=== PATIENT | female | born 1985 | race Caucasian/White ===

== ENCOUNTER → 2017-07-30 | Outpatient (CLI) | payer BC ==
[~2017-07-30] MED LIST: CEFE2INJ2 IV; ESCI10TA17 PO; FERR1TAB23 PO; IPRASOL4 INH; LVNIS40 SQ; MISC-696; OPTIRAY 320 IV PRN; OXYC5TAB PO; PRENTAB26 PO; VNCE1000 IV
[2017-07-30 15:53] LABS: BASO % 0.2 %; BASO ABS # 0.02 K/uL (0-0.2); COMPLETE YES; EOS % 1.2 %; HEMATOCRIT 34.3 % (37-47); IG% 0.2 %; LYMPH % 21.2 %; LYMPH ABS # 2.53 K/uL (1.2-3.4); MEAN CELL VOLUME 71.2 fL (80-100); MEAN CORPUSCULAR HEMOGLOBIN 22.2 pg (25-34); MEAN CORPUSCULAR HGB CONC 31.2 g/dl (32-36); MONO % 5.8 %; NEUT % 71.4 %; PLATELET COUNT 340 K/uL (130-400); RED BLOOD COUNT 4.82 M/uL (4.2-5.4); WHITE BLOOD COUNT 11.91 K/uL (4.8-10.8)
[2017-07-30 16:28] LABS: ALB/GLOB RATIO 0.9 (0.9-2); ALKALINE PHOSPHATASE 95 U/L (45-117); ALT/SGPT 25 U/L (12-78); AST/SGOT 13 U/L (15-37); BLOOD UREA NITROGEN 14 mg/dl (7-18); BUN/CREATININE RATIO 17.7 (10-20); CALCIUM 8.7 mg/dl (8.5-10.1); CARBON DIOXIDE 31 mmol/L (21-32); CHLORIDE 98 mmol/L (98-107); CREATININE 0.81 mg/dl (0.60-1.20); GLUCOSE 98 mg/dl (70-99); POTASSIUM 3.3 mmol/L (3.5-5.1); SODIUM 134 mmol/L (136-145)
--- NOTE | 2017-07-30 16:53 | DIAGNOSTIC IMAGING REPORT ---
CT ANGIOGRAM OF THE CHEST CLINICAL HISTORY: Dyspnea. COMPARISON STUDY: Chest x-ray dated 08/08/2016. Chest CT dated 08/06/2016. TECHNIQUE: Following the IV administration of 93 cc of Optiray 320, CT angiogram of the chest was performed from the upper abdomen to the thoracic inlet utilizing the pulmonary embolus protocol. Images are reviewed in the axial, sagittal, and coronal planes. 3-D MIPS images are created and assessed. IV contrast was administered without complication. A dose lowering technique was utilized adhering to the principles of ALARA. The Examination is modestly degraded by motion artifact. CT DOSE: 535.88 mGycm FINDINGS: Thyroid: Imaged portions of the thyroid gland are normal in size and attenuation. Thoracic aorta: The thoracic aorta is normal in caliber and demonstrates standard 3-vessel arch anatomy. No dissection is seen. Pulmonary vasculature: The pulmonary trunk is dilated, measuring 3.3 cm in transverse diameter. This suggests pulmonary artery hypertension. There are no filling defects identified in main, lobar, or segmental pulmonary branches to suggest pulmonary embolus. Heart: The heart is enlarged and without pericardial effusion. Lungs and pleural spaces: The lungs and pleural spaces are clear. Mediastinum: There is no mediastinal lymphadenopathy. Indira: Clear. Axillae: There is no axillary lymphadenopathy. Upper abdomen: Cholecystectomy clips are noted. There is a small hiatal hernia. Postoperative change suggests previous gastric bypass surgery. Skeletal structures: No lytic or blastic bony lesions are seen. IMPRESSION: 1. There is no evidence of pulmonary embolus in the main, lobar, or segmental pulmonary arteries. 2. The lungs are clear. 3. Cardiomegaly with evidence of pulmonary artery hypertension. 4. Additional findings as above. Electronically signed by: Kuldeep Mcclellan M.D. 07/30/2017 4:52 PM Dictated Date/Time: 07/30/2017 4:48 PM
== END | disposition home or self-care (01) ==
LOC: C.CTS 15:25
PROVIDERS: ATTEND Internal Medicine Pulmonary Disease
DX: J96.00 Acute respiratory failure, unspecified whether with hypoxia or hypercapnia (principal); R07.89 Other chest pain; R60.0 Localized edema; R06.02 Shortness of breath; I51.7 Cardiomegaly

== ENCOUNTER → 2017-08-20 | Outpatient (CLI) | payer BC ==
[~2017-08-20] MED LIST changes: -OPTIRAY 320 IV PRN
--- NOTE | 2017-08-29 11:44 | PULMONARY FUNCTION TEST ---
Pre-bronchodilator spirometry is well within normal limits. There was no significant response to bronchodilator but this should not preclude a therapeutic trial if clinically warranted. Lung volumes were well within normal limits. Diffusion capacity was mild to moderately reduced. Clinical correlation is needed.
== END | disposition home or self-care (01) ==
LOC: C.RC 09:29
PROVIDERS: ATTEND Physician Assistant
DX: J80 Acute respiratory distress syndrome (principal); R06.02 Shortness of breath

== ENCOUNTER → 2017-09-04 | Outpatient (CLI) | payer BC ==
[~2017-09-04] MED LIST changes: -MISC-696; +MISC-836
[2017-09-04 10:44] LABS: HEMATOCRIT 33.8 % (37-47); HEMOGLOBIN 10.2 g/dL (12.0-16.0); MEAN CELL VOLUME 71.5 fL (80-100); MEAN CORPUSCULAR HEMOGLOBIN 21.6 pg (25-34); MEAN CORPUSCULAR HGB CONC 30.2 g/dl (32-36); MEAN PLATELET VOLUME 10.1 fL (7.4-10.4); PLATELET COUNT 342 K/uL (130-400); RED CELL DISTRIBUTION WIDTH CV 16.6 % (11.5-14.5); RED CELL DISTRIBUTION WIDTH SD 43.4 fL (36.4-46.3); WHITE BLOOD COUNT 7.55 K/uL (4.8-10.8)
[2017-09-04 10:53] LABS: PTT PATIENT 26.5 SECONDS (21.0-31.0)
[2017-09-04 10:55] LABS: BLOOD UREA NITROGEN 13 mg/dl (7-18); CALCIUM 8.6 mg/dl (8.5-10.1); CARBON DIOXIDE 32 mmol/L (21-32); CREATININE 0.67 mg/dl (0.60-1.20); GLUCOSE 94 mg/dl (70-99); POTASSIUM 3.3 mmol/L (3.5-5.1); SODIUM 136 mmol/L (136-145)
== END | disposition home or self-care (01) ==
LOC: C.LAB1850 09:12
PROVIDERS: ATTEND Internal Medicine Interventional Cardiology
DX: Z01.818 Encounter for other preprocedural examination (principal)

== ENCOUNTER → 2017-09-08 | Day surgery (SDC) | payer BC ==
[~2017-09-08] VITALS: Ht 160 cm; Wt 128.0 kg
[~2017-09-08] MED LIST changes: +ACET-1175 PO; +BUME1TAB PO; +CALC600T9 PO; +ESCI1TAB10 PO; +FENTANYL CITRATE INJ 50 MCG/1 ML 2 ML VIAL ONE; +LAMO25TA PO; +MEDR10TA PO; +METO2.5T PO; +MIDAZOLAM HCL 1 MG/ML 2ML VIAL ONE; +POTA20TA16 PO; +[UNRECOGNIZED DRUG - CODE] PO
[2017-09-08 07:20] VITALS: BP 91/66; PULSE 88; TEMP 36.8; O2SAT 97; Ht 160 cm; Wt 128.0 kg
--- NOTE | 2017-09-08 08:55 | History & Physical Bridge Note ---
H&P Re-Evaluation Bridge Note: I have examined the patient, reviewed the History & Physical and in the interval since the performance of the History & Physical I have noted the following changes of clinical significance: No changes noted
--- NOTE | 2017-09-08 08:56 | Pre Sedation Assessment ---
Pre Sedation Assessment General Date of Sedation: Sep 08, 2017. Vital Signs Past 12 Hours Date Time Temp Pulse Resp B/P (MAP) Pulse Ox O2 Delivery O2 Flow Rate FiO2 09/08/17 07:20 36.8 88 16 91/66 (74) 97 Review Cardiovascular: regular rate, rhythm, no edema Lungs: chest non-tender, lungs clear Pre-Sedation Airway Assessment Smoking Status: Never Smoker Hx of Sleep Apnea: No Short Thick Neck: Yes Thyro-mental Distance: > 3 Finger Breadths Oral Cavity: WNL Mallampati Classification: Class III ASA Classification: Class III NPO Status Date of Last Intake of Fluids: Sep 07, 2017 Time of Last Intake of Fluids: 2229 Date of Last Intake of Solids: Sep 07, 2017 Time of Last Intake of Solids: 2229 Procedure Planning Contraindications for Sedation: None Current Medications Reviewed: Yes Notes The planned sedation has been discussed with the patient. Informed Consent was obtained. I have identified the patient, determined the appropriateness of sedation and have assessed the patient immediately prior to the procedure. All medicine(s) and interventions are by my order.
--- NOTE | 2017-09-08 09:30 | Post Sedation Assessment ---
Post Sedation Assessment General Date of Sedation Sep 08, 2017. Vital Signs: Vital Signs Past 12 Hours Date Time Temp Pulse Resp B/P (MAP) Pulse Ox O2 Delivery O2 Flow Rate FiO2 09/08/17 07:20 36.8 88 16 91/66 (74) 97 Post Procedure Recovery Score Activity: (2) Moves 4 extremities * Respiration: (2) Deep breath/cough Circulation: (2) +/-20% PreAnes Value Consciousness: (2) Fully Awake Oxygen Saturation: (2) > 92% On Room Air Discharge Sedation Level of Care: Fast Track Phase II Post Sedation Plan On clinical assessment, the patient appears to have tolerated the sedation without complications. Patient is recovering as anticipated. Patient will continue to be monitored by nursing and may be discharged when sedation discharge criteria are met per below protocol. Upon Completions of procedure and additional 15 minutes continue every 5 minute vital signs and the P.A.R. score; then discharge to a Phase I or Fast Track to Phase II per the following guidelines: * Discharge Patient to appropriate Phase II area if PAR is 8 or greater or return to pre- procedure baseline. The post - procedure orders will be as directed. * If PAR score is less than 8 or not return to pre-procedure baseline then patient will follow Phase I monitoring till PAR is reached for Phase II. The Phase I may be done in procedure room or may call to secure a Phase I area. * If naloxone or flumazenil are used for reversal, hold in Phase I for an additional 60 -120 minutes before discharge to Phase II. Please call the Sedation Physician to re-evaluate and complete post-note for discharge to Phase II area. Do NOT discharge from procedure sedation or Phase 1 until post- sedation evaluation note is complete by procedure /sedation MD Sedation Discharge Instructions to be given to the patient at discharge to home.
--- NOTE | 2017-09-08 09:46 | Cardiac Catheterization ---
Procedure Note Procedure Date Sep 08, 2017. Pre-Procedure Diagnosis Cardiothoracic Symptom AUC Score 7 Post-Procedure Diagnosis Normal Intracardiac Pressures Procedure(s) Performed Right Heart Cath Senior Business Development Manager [address] Security Officer(s) Glunt Estimated Blood Loss 5 Medication(s) Lidocaine 1% Summary of Findings Sterile IV placed in labor custodian holding area to right antecubital vein. Local lidocaine administered IV exchanged for 6Fr slender sheath 6Fr swan navigated to heart under fluoroscopic guidance. -- RHC Findings -- RA 5 RV 26/8 PA 23/12 (17) PCW 7 PaSat 68% AoSat 100% Kyle CO/CI 6.3/2.8 Thermo CO/CI 8.9/4.0 SUMMARY: 1. Normal biventricular filling pressures. 2. No pulmonary hypertension. 3. Normal cardiac output. Hemodynamics Rest Ao: -- Final Ao: -- LV: -- Recommendations Medical therapy and/or Counseling Specimens None Radiation Exposure (mGy) 68 Contrast (mls) None Fluids (cc crystalloids) 4 Drains none Anesthesia Local Procedural Complication(s) None Disposition Application Integrator Holding/Recovery ACC Data Cardiac Status Clinical evaluation leading to the procedure CAD Presntation: Sx unlikely to be ischemic Anginal Classification: CCS II Cardiogenic Shock w/in 24Hrs: No Cardiac Arrest w/in 24Hrs: No Imaging studies past 6 months: Yes Stress studies past 6 months: No Closure Device Percutaneous Entry Location: antecubital vein Closure Device: none - manual hold Intraprocedure Events Significant Dissection: No Perforation: No
--- NOTE | 2017-09-08 09:55 | Discharge Instructions ---
Discharge Instructions Procedure Procedure Date: Sep 08, 2017. Reason for Visit: Chest Discomfort *. Discharge Discharge Date: Sep 08, 2017. Discharge Diagnosis: Normal pulmonary artery pressures Last Recorded Wt (Kilograms): 128 Instructions Activity Recommendations: resume regular activity Recommended Home Diet: resume previous diet Allergies: Coded Allergies: No Known Allergies (Unverified , 08/01/16) Follow Up Additional Instructions: ACTIVITY RECOMMENDATIONS: Excess manipulation of the arm should be avoided for the next 24-48 hours. * No lifting over 2 pounds (approximately a 1/2 gallon of milk) with the utilized arm for 24 hours. * No strenuous activity such as bowling or tennis for 3 days. * Keep the site of the procedure covered with a bandage for 24 hours. *You may shower the day after the procedure. Do not take a tub bath or submerge the puncture site in water for the next 3 days. SPECIAL CARE INSTRUCTIONS: The site may be slightly bruised and sore following your procedure. Should any of the following occur, contact the Dr. who performed your procedure. 1. Redness/inflammation, swelling, chills, or fever, or colored drainage at procedure site within 3-7 days after your procedure. SKIN IRRITATION: * You may experience some redness and/or swelling in the area where radiation was administered. If any skin irritation occurs, please contact your family physician. FOLLOW UP VISIT: Keep any scheduled doctor appointments. Follow-up with: As scheduled with Dr. Helio Hayden Recommendations: Call your doctor if: * Temperature above 101 degrees * Pain not relieved by pain medicine ordered * There is increased drainage or redness from any incision * You have any unanswered questions or concerns. Your Doctors Instructions noted above were prepared by provider Richie Viveros. Patient Signature Section: Patient Instructions Signature Page Maude Susy Patient (or Guardian) Signature/Date: I have read and understand the instructions given to me by my caregivers. Caregiver/RN/Doctor Signature/Date: The above-named patient and/or guardian has received patient instructions on this date. + Original Patient Signature Page (only) stays with chart. Please make copy for patient.
[2017-09-08 09:59] VITALS: BP 122/70; PULSE 73; O2SAT 98
== END | disposition home or self-care (01) ==
LOC: C.CATH 07:12
PROVIDERS: ATTEND Internal Medicine Interventional Cardiology
DX: R07.9 Chest pain, unspecified (principal); I27.20 Pulmonary hypertension, unspecified; I27.82 Chronic pulmonary embolism; F32.9 Major depressive disorder, single episode, unspecified; E66.01 Morbid (severe) obesity due to excess calories; Z98.84 Bariatric surgery status; Z82.49 Family history of ischemic heart disease and other diseases of the circulatory system

== ENCOUNTER → 2017-09-18 | Outpatient (CLI) | payer BC ==
[~2017-09-18] MED LIST changes: -CEFE2INJ2 IV; -ESCI10TA17 PO; -FENTANYL CITRATE INJ 50 MCG/1 ML 2 ML VIAL ONE; -FERR1TAB23 PO; -IPRASOL4 INH; -LVNIS40 SQ; -MIDAZOLAM HCL 1 MG/ML 2ML VIAL ONE; -MISC-836; -OXYC5TAB PO; -PRENTAB26 PO; -VNCE1000 IV
== END | disposition home or self-care (01) ==
LOC: C.RC 17:13
PROVIDERS: ATTEND Internal Medicine Pulmonary Disease
DX: I27.82 Chronic pulmonary embolism (principal)

== ENCOUNTER → 2017-09-22 | Outpatient (CLI) | payer BC ==
--- NOTE | 2017-09-22 07:46 | DIAGNOSTIC IMAGING REPORT ---
CHEST 2 VIEWS ROUTINE CLINICAL HISTORY: Chest discomfort. Chronic pulmonary embolism. COMPARISON STUDY: Chest CT July 30, 2017. FINDINGS: Lung volumes are normal. No pneumothorax or pleural effusion is noted. Pulmonary vascularity is normal. Mild elevation/eventration of the right hemidiaphragm is unchanged. Cardiac size is normal. Mediastinal contours are normal. There is no evidence for pulmonary edema. IMPRESSION: No acute cardiopulmonary findings. Electronically signed by: Fabian Fitzgerald M.D. 09/22/2017 7:45 AM Dictated Date/Time: 09/22/2017 7:43 AM
--- NOTE | 2017-09-22 08:58 | DIAGNOSTIC IMAGING REPORT ---
LUNG IMAGING VQ CLINICAL HISTORY: 32 years-old Female presenting with I27.82 [facility] AT 7:30. PT A. TECHNIQUE: Immediately following the inhalation of 32.6 mCi of technetium 99 M DTPA for the ventilation scan and the intravenous administration of 5.4 mCi of technetium 99 M MAA for the perfusion scan, anterior, oblique, lateral, and posterior views of the chest were obtained. Modified PIOPED II criteria were utilized for assessment. COMPARISON: Chest x-ray performed the same day and CTA chest from 07/30/2017. FINDINGS: Radiotracer noted in the region of the stomach consistent with ingestion. One small mismatched defect is identified on this examination in the posterior segment of the right upper lobe (less than 25% of the segment). No additional defect is convincingly present. Ventilation to both lungs is preserved. Reference: Modified PIOPED II criteria Normal: No perfusion defects. Very low likelihood ratio: Nonsegmental, perfusion defect < chest x-ray lesion, 1-3 small segmental defects, solitary triple matched defect (< or = 1 segment) in mid or upper lung, stripe sign, solitary large pleural effusion, > or = to 2 matched defects with regionally normal chest x-ray. High likelihood ratio: > or = 2 large mismatch segmental defects. Nondiagnostic: All other findings. IMPRESSION: Very low likelihood for pulmonary embolus. Electronically signed by: Ricardo Kumar M.D. 09/22/2017 8:56 AM Dictated Date/Time: 09/22/2017 8:45 AM
== END | disposition home or self-care (01) ==
LOC: C.NUCL 07:20
PROVIDERS: ATTEND Internal Medicine Pulmonary Disease
DX: I27.82 Chronic pulmonary embolism (principal); R07.89 Other chest pain

== ENCOUNTER → 2017-11-15 | Outpatient (CLI) | payer BC ==
--- NOTE | 2017-11-16 05:39 | PAP/PSG TECHNICIAN REPORT ---
[facility] Manager Activities Polysomnogram Report Study name: None Report date: 11/16/2017 Study date: 11/15/2017 Referring Physician: Puma Cadet MD Name: DORA JOSEPH Interpreting Physician: Ernst Angeles D.O. Date of : 1985 Manager Activities: RADHA Trujillo. Sex: Female Age: 32 StudyType: PSG Weight: 278 lbs Height: 32 years, Height 5' 3" Neck Circum:15.5inches BMI: 49.24 Medications: Acetaminophen 325mg, Bumex 1mg, Calcium +D, Lamictal 25mg, Lamictal XR 100mg, Lexapro 20mg, Metolazone 2.5mg, Potassium Chloride 20MEQ/50ml, Provera 10mg Patient History Study started on room air with no ETCO2 monitoring in room #8. 32 yr old female here tonight for a diagnostic psg. She has SOB with exertion. She has EDS. She sleeps in the upright position in a recliner. She does not know if she snores. She has a history of acute respiratory failure, ARDS, chronic pulmonary embolism and morbid obesity. Her ESS=14/24. Her neck circ=15.5inches. Parameters Monitored NPSG: E1-M2, E2-M1, Fp1-M2, Fp2-M1, F3-M2, F4-M2, F4-M1, C3-M2, C4-M2, C4-M1, O1-M2, O2-M2, O2-M1, T3-M2, T4-M1, P3-M2, P4-M1, CHIN1, CHIN2, HR, EKG, Legs, PFLOW, SNOR, FLOW, CFLOW, Tidal Volume, THOR, ABDO, SpO2, PLTH, CPRESS, ETCO2 Wave, ETCO2, pH Sleep Architecture Sleep Stages Time at Lights Off 9:54:37 PM STAGES Time (min.) TST (%) Time at Lights On 5:15:07 AM Wake 62.0 -- Total Recording Time (TRT) 440.50 min. N1 40.5 11 Total Sleep Period (TSP) 420.0 min. N2 258.0 68 Total Sleep Time (TST) 378.5min. N3 51.5 14 Awake Time 62.0 min. REM 28.5 8 Wake after Sleep Onset 41.5 min. Sleep Efficiency (SE) 86 % Sleep Onset Latency (THERON) 20.5 min. Number of Stage 1 Shifts None Awakenings 25 Stage Changes 144 Number of REM periods 7 REM 28.5 8 REM Latency 220.0 min. NREM 350.0 92 Body Position Analysis Supine Right Left Side Prone Vertical Total Sleep Time (min.) 90.8 49.5 249.9 299.37 0.0 0.0 Total Sleep Time (%) 21% 13% 66% 79 0% N/A% Total Sleep Time REM (min.) 18.5 0.0 10.0 None 0.0 0.0 Total Sleep Time NREM (min.) 60.6 49.5 239.9 None 0.0 0.0 Intermittent Wake (min.) 11.7 27.0 23.3 None 0.0 0.0 Total Sleep Period (%) 20% None None None None None Arousals Myoclonus (PLM) * Events Count Index Events Count Index Spontaneous 37 6 Events Awake (PLMW) 42 40.6 Respiratory 3 0.5 Events Asleep w/ Arousal (PLMA) 17 2.7 PLM 17 3 Events Asleep w/o Arousal (PLMS) 53 8.4 Snoring 7 1 Total Asleep 70 11.1 Total 63 10 Total 112 15 Respiratory Analysis * CA OA MA CH H RERA Total Count 0 0 0 0 21 0 21 Index 0.0 0.0 0.0 0 3.3 0 3.3 Mean Duration 0.0 0.0 0.0 0.00 15.5 0.0 15.5 Longest Duration 0.0 0.0 0.0 0.00 0.0 0.0 25.2 Respiratory Event Summary Total Supine ~Supine Right Left Prone REM NREM Apneas Count 0 0 0 0 0 N/A 0 0 Index 0.0 0 0 0.0 0.0 N/A 0 0 Hypopneas (4% Desat) Count 21 16 5 0 5 N/A 13 8 Index 3.3 12.1 1 0.0 1.2 N/A 27.4 1.4 Apneas & All Hypopneas Count 21 16 5 0 5 N/A 13 8 Index 3.3 12 1 0 1 N/A 27.4 1.4 Respiratory Events (Urologic Surgeon+All Hyp+RERA) Count 21 16 5 0 5 N/A 13 8 Index 3.3 12 1 0.0 1.2 N/A 27.4 1.4 Respiratory Related Arousal Count 3 16 1 0 1 N/A 1 2 Index 0.5 2 0 0 0 N/A 2 0 Snoring Analysis Supine Right Left Prone REM NREM Total Snore duration 18.9 min Snores count 899 5 40 N/A 7 937 944 Snore mean duration 1.2 Sec Snores index 682 6 10 N/A 14.7 160.6 149.6 TST with snoring (%) 5.0% Desaturation Event Summary: Minimum %SpO2 Event Count Mean/Min/Max Duration(sec.) Desaturation Index % Time In Bed > 90 32 20.8 / 5.3 / 56.5 4.6 97.0 86 - 90 3 11.4 / 6.5 / 17.5 14.2 2.9 81 - 85 0 N/A 0.0 0.1 76 - 80 0 N/A 0.0 0.0 71 - 75 0 N/A 0.0 0.0 66 - 70 0 N/A 0.0 0.0 61 - 65 0 N/A 0.0 0.0 56 - 60 0 N/A 0.0 0.0 51 - 55 0 N/A 0.0 0.0 < 50 0 N/A 0.0 0.0 Total REM NREM Awake <50% 0.0 min. 0.0 min. 0.0 min. 0.0 min. 51 - 60% 0.0 min. 0.0 min. 0.0 min. 0.0 min. 61 - 70% 0.0 min. 0.0 min. 0.0 min. 0.0 min. 71 - 80% 0.0 min. 0.0 min. 0.0 min. 0.0 min. 81 - 90% 13.1 min. 3.9 min. 8.2 min. 1.0 min. 91 - 100% 421.1 min. 24.6 min. 341.7 min. 54.7 min. Average 93 93 94 93 Minimum SpO2 80 82 84 80 Desaturation Event Index 4.6 37.9 2.4 3.9 # Desat. Events below 89% 16 9 7 N/A Time(%) with Saturation below 89% 0.7 0.4 0.2 0.1 Time(min.) with Saturation below 89% 2.9 1.8 0.8 0.2 Time (mins) REM (mins) NREM (mins) % of TST SpO2 Below 90% 22 13 N9 1.1 SpO2 Below 88% 5 0 0 0 Heart Rate Analysis Min (bpm) Max (bpm) Average (bpm) Awake 37 127 71 NREM 55 83 65 REM 58 81 68 Overall 55 83 66 Supplemental O2 Values Minimum O2 level: None Value Start Time End Time Manager Activities Comments Ms. Joseph slept in the right, left and supine positions with the head of her bed elevated. She usually sleeps in a recliner. No cardiac arrhythmia noted. Some leg movements were noted. No bruxism noted. Snoring was noted and scored as a 2 on a scale of 1 through 5. (0=no snoring, 5=snoring loud enough to be heard through a closed door or down the acevedo way) She awoke to use the restroom 1 time during the night. She stated that she slept about the same as usual. She needed up for work at 5:15am. The final report will be interpreted and signed by a sleep physician. The completed physician report will then be placed in the patient medical record. Therapy (cm H2O) 0 TIB (min.) 440.5 TST (min.) 378.5 Sleep Onset (min.) 20.5 REM Onset From Sleep (min.) 220.0 Sleep Efficiency % 86 Wakefulness (%) 14 Wakefulness (min.) 62.0 NREM 1 (%) 11 NREM 1 (min.) 40.5 NREM 2 (%) 68 NREM 2 (min.) 258.0 NREM 3 (%) 14 NREM 3 (min.) 51.5 REM (%) 8 REM (min.) 28.5 # Arousals 63 Arousal Index 10 # Snore 944 Snore Index 149.6 AHI 3.3 AHI Supine 12 AHI Non-Supine 1 NREM AHI 1.4 REM AHI 27.4 RDI 3.3 # Obstructive Apnea 0 # Central Apnea 0 # Mixed Apnea 0 # Hypopneas 21 RERAs 0 Total Respiratory Events 21 Time Below SpO2 89% (min.) 2.6 Mean NREM SpO2 (%) 94 Mean REM SpO2 (%) 93 Mean Sleep SpO2 (%) 93 Min NREM SpO2 (%) 84 Min REM SpO2 (%) 82 Position Supine (min.) 90.8 Position Non-supine (min.) 299.4 LM Index Sleep 11.1 LM Index NREM 11.5 LM Index REM 6.3 Mean Heart Rate (bpm) 66 Min Heart Rate (bpm) 55
--- NOTE | 2017-11-17 15:10 | POLYSOMNOGRAPH REPORT ---
CLINICAL DATA: The patient is a 32-year-old female with a history of excessive daytime somnolence. Her [place] sleepiness scale score is 14 out of a possible 24. The BMI is 49.24. This was an in-lab overnight polysomnography. SLEEP ARCHITECTURE: The total sleep period was 420 minutes. The total sleep time was 378.5 minutes. Sleep efficiency was mildly reduced to 86%. The sleep latency was 20.5 minutes. Wake after sleep onset was 41.5 minutes. The REM latency was prolonged to 220 minutes. There were 2 REM periods during the night. Sleep consisted of stage N1 of 11%, stage N2 of 68%, stage N3 of 14%, and stage REM 8%. AROUSAL DATA: The patient had a total of 63 arousals including 37 spontaneous arousals, 3 respiratory arousals, 17 PLM arousals, and 7 snoring arousals. The arousal index was 10. PLM DATA: The patient had 70 periodic limb movements of sleep for a PLM index of 11.1. There were 17 arousals associated with limb movements for a PLM arousal index of 2.7. EKG: The underlying cardiac rhythm was normal sinus. The cardiac rates ranged from 55-83 beats per minute. The average heart rate was 66 beats per minute. No arrhythmia noted. RESPIRATORY DATA: The patient had a total of 21 respiratory events, all hypopneas. Hypopneas were scored according to the 4% desaturation rule. The mean duration of the hypopneas was 15.5 seconds. The apnea hypopnea index was 3.3. This would reflect no significant sleep apnea. OXIMETRY DATA: The average saturation was 93%. The minimum saturation was 80%. The desaturations were transient. There was a total of only 2.9 minutes with saturations less than 89%. SOFT HAT BINDER COMMENTS: The patient slept in the right, left, and supine positions with the head of her bed elevated. She usually sleeps in a recliner. No cardiac arrhythmia noted. Some leg movements noted. No bruxism noted. Snoring was noted and scored as a 2 on a scale of 1 through 5. She awakened to use the restroom one time during the night. IMPRESSION: Primary snoring. COMMENTS: The patient had no significant sleep apnea. As noted, her apnea-hypopnea index was only 3.3. She did have some snoring. There was a relatively mild number of leg movements with no significant arousals. Most of the respiratory events she did have occurred during REM sleep when supine. RECOMMENDATIONS: 1. It is advised that the patient be made aware of the appropriate principles of sleep hygiene including having a regular sleep-wake schedule and allowing at least 7.5 hours of sleep time per night. 2. Weight loss is advised in light of the elevation of body mass index at 49.24. 3. It is suggested that the patient avoid sleeping in the supine position. Typically, there is more respiratory events and snoring while supine.
== END | disposition home or self-care (01) ==
LOC: C.NEUR 21:00
PROVIDERS: ATTEND Internal Medicine Pulmonary Disease
DX: G47.30 Sleep apnea, unspecified (principal); R60.0 Localized edema; I50.810 Right heart failure, unspecified; R06.02 Shortness of breath

== ENCOUNTER 2019-10-10 14:06 | Observation (INO) ==
[2019-10-10] MEDS ORDERED: VANCOMYCIN CONSULT ACTIVE PRN (14:44)
[2019-10-10] MEDS ORDERED: VANCOMYCIN HCL 2,750 MG in SODIUM CHLORIDE 0.9% 500 ML IV ONE (14:44)
[2019-10-10] MEDS ORDERED: SODIUM CHLORIDE 0.9% 1000ML 1,000 ML IV ONE (14:44)
[2019-10-10] MEDS ORDERED: KETOROLAC 30 MG/ML VIAL IV STA (14:47)
--- NOTE | 2019-10-10 15:58 | Emergency Department Note ---
History of Present Illness General Chief complaint: Wound Recheck Stated complaint: INFECTION UNDER LT ARM/SIDE, NEEDS RECHECKED History of Present Illness Maximum Pain Intensity: 7 This patient is a pleasant 34-year-old female that returns to the emergency department for recheck of cellulitis in her left axilla. The patient has a history of HS. She was seen in the emergency department 2 days ago and given Dalvance. Prior to the Dalvance, the patient was on oral clindamycin. She has had no improvement. She actually has worsening redness and pain to the area. She feels nauseated. She has not taken her temperature. She has not tried anything else [id number] for her symptoms. The pain is throbbing in nature. Home Medications Home Medications Medication Instructions Recorded Confirmed Type acetaminophen [Tylenol Extra 500 mg PO QID PRN #0 tab 09/08/17 10/12/19 History Strength] bumetanide 1 mg PO DIRECTED PRN 90 Days 09/08/17 10/12/19 History #180 tab calcium carbonate-vitamin D3 1 tab PO DAILY #0 09/08/17 10/12/19 History [Calcium 600 + D(3)] potassium chloride 20 meq PO DIRECTED PRN #0 tab 09/08/17 10/12/19 History Flintstones Gummies 1 tab PO BID 10/08/19 10/12/19 History Vyvanse 40 mg PO QAM 10/08/19 10/12/19 History alprazolam 0.25 mg PO DIRECTED PRN 10/08/19 10/12/19 History bupropion HCl 150 mg PO BID 10/08/19 10/12/19 History buspirone 15 mg PO BID 10/08/19 10/12/19 History ferrous sulfate 325 mg PO BID 10/08/19 10/12/19 History guanfacine 1 mg PO BID 10/08/19 10/12/19 History hydrocodone-acetaminophen 1 tab PO QID PRN 10/08/19 10/12/19 History lamotrigine 200 mg PO BID 10/08/19 10/12/19 History medroxyprogesterone 150 mg IM Q90D 10/08/19 10/12/19 History medroxyprogesterone 150 mg IM Q90D 10/08/19 10/12/19 History pantoprazole 40 mg PO DAILY PRN 10/08/19 10/12/19 History sertraline 150 mg PO DAILY 10/08/19 10/12/19 History temazepam 15 mg PO DIRECTED PRN 10/08/19 10/12/19 History doxycycline hyclate 100 mg capsule 100 mg PO BID 7 Days #14 cap 10/13/19 10/13/19 Rx Allergies Allergy/AdvReac Type Severity Reaction Status Date / Time amoxicillin [From Augmentin] Allergy Severe Possible Verified 10/14/19 08:35 ARDS clavulanic acid Allergy Severe Possible Verified 10/14/19 08:35 [From Augmentin] ARDS Past Med/Surg History Medical History Anemia ARDS (adult respiratory distress syndrome) 2016 four days after of her son, unknown cause but possibly due to preeclampsia Depression Hidradenitis suppurativa of left axilla (Chronic) Morbid obesity Surgical History Gastric bypass status for obesity H/O hernia repair Previous section Social History Preferred Language: Palauan Communication Ability: Effective Production Analyst Required: No Beliefs That Will Affect Care: None Current Living Situation: Other Current Living Situation Comment: lives with her 3 nawaf old son Feels Safe at Home: Yes Smoking Status: Never smoker Second Hand Exposure: No ; Hx Alcohol Use: No Hx Substance Use: No Review of Systems A total of 10 systems reviewed and were otherwise negative Physical Exam Vital Signs Vital Signs - 24 hr 10/10/19 14:21 Temperature 37.1 C Temperature Source Oral Pulse Rate 86 Respiratory Rate 20 Respiratory Effort / Characteristics Non-Labored Spontaneous Respiratory Depth Normal Respiratory Pattern Regular Blood Pressure 163/100 H Blood Pressure Mean 121 Blood Pressure Position Sitting Pulse Oximetry 100 Oxygen Delivery Method Room Air Sepsis Recent Fever Within 48 Hours No Sepsis New/Unexplained Change in Mental Status No Sepsis Action Taken by Nursing No Action Required Constitutional WD/WN, vitals as above Eyes EOM intact bilaterally ENMT external ear and nose normal, oropharynx normal Neck trachea midline Respiratory normal respiratory effort, lungs clear to auscultation Cardiovascular RRR, no murmur, no edema Gastrointestinal (Abdomen) normal bowel sounds, soft, nontender, no hepatosplenomegaly Musculoskeletal no cyanosis or clubbing, extremities motor strength 5/5 Skin Increasing area of erythema to the left axilla that extends into the anterior aspect of the left chest wall. No purulent drainage noted. Neurologic Alert and oriented x3. No focal motor deficits. Psychiatric Acting appropriately Course Course Patient was seen and examined Vital signs including blood pressure were reviewed medications list was verified with patient Labs were obtained, and a saline lock was established case was discussed with pharmacy. She was ordered ABX Case was d/w the hospitalist service. They kindly agreed to to see the pt for possible inpatient management. Administered Medications Discontinued Medications Hydrocodone Bitart/Acetaminophen ([place] 10/325) 1 tab PO QID PRN PRN Reason: ongoing therapy Stop: 10/24/19 20:40 Last Admin: 10/11/19 07:31 Dose: 1 tab Documented by: [id number] Admin: 10/10/19 23:35 Dose: 1 tab Documented by: [id number] Bupivacaine HCl/Epinephrine Bitart (Sensorcaine/Epinephrine 0.5% Mpf 1:200,000) Confirm Administered Dose 20 ml .ROUTE .STK-MED [facility] Stop: 10/10/19 22:51 Last Admin: 10/10/19 23:04 Dose: 6 ml Documented by: [id number] Bupropion HCl (Wellbutrin-Sr) 150 mg PO BID17 [facility] Stop: 11/10/19 08:59 Last Admin: 10/11/19 08:36 Dose: 150 mg Documented by: [id number] Cosigned by: [id number] Admin: 10/11/19 00:48 Dose: 150 mg Documented by: [id number] Buspirone HCl (Buspar) 15 mg PO BID [facility] Stop: 11/09/19 20:59 Last Admin: 10/11/19 08:30 Dose: 15 mg Documented by: [id number] Cosigned by: [id number] Admin: 10/11/19 00:49 Dose: 15 mg Documented by: [id number] Admin: 10/10/19 22:21 Dose: Not Given Documented by: [id number] Ferrous Sulfate (Feosol) 325 mg PO BIDM [facility] Stop: 11/10/19 07:59 Last Admin: 10/11/19 08:28 Dose: 325 mg Documented by: [id number] Cosigned by: [id number] Guanfacine HCl (Guanfacine Hcl) 1 mg PO BID [facility] Stop: 11/09/19 20:59 Last Admin: 10/11/19 08:35 Dose: 1 mg Documented by: [id number] Cosigned by: [id number] Admin: 10/11/19 00:48 Dose: 1 mg Documented by: [id number] Admin: 10/10/19 22:21 Dose: Not Given Documented by: [id number] Sodium Chloride (Nss 1000ml) 1,000 mls @ 999 mls/hr IV .Q1H1M ONE Stop: 10/10/19 15:44 Last Infusion: 10/10/19 17:07 Dose: 0 mls/hr Documented by: [id number] Admin: 10/10/19 16:05 Dose: 999 mls/hr Documented by: [id number] Cosigned by: [id number] Vancomycin HCl 2,750 mg/ (Sodium Chloride) 555 mls @ 200 mls/hr IV NOW ONE Stop: 10/10/19 17:30 Last Infusion: 10/10/19 17:48 Dose: 0 mls/hr Documented by: [id number] Infusion: 10/10/19 16:22 Dose: 0 mls/hr Documented by: [id number] Admin: 10/10/19 15:58 Dose: 200 mls/hr Documented by: [id number] Cosigned by: [id number] Ciprofloxacin (Cipro) 400 mg in 200 mls @ 200 mls/hr IV NOW STA Stop: 10/10/19 19:05 Last Infusion: 10/10/19 19:32 Dose: 0 mls/hr Documented by: [id number] Admin: 10/10/19 18:25 Dose: 200 mls/hr Documented by: [id number] Cefepime HCl 2,000 mg/ Syringe 20 mls @ 5.5 mls/min IV Q12H [facility]; Protocol Stop: 10/17/19 20:59 Last Admin: 10/11/19 08:52 Dose: 5.5 mls/min Documented by: [id number] Cosigned by: [id number] Admin: 10/10/19 22:01 Dose: 5.5 mls/min Documented by: [id number] Clindamycin Phosphate (Cleocin) 600 mg in 54 mls @ 100 mls/hr IV ONCE [facility] Stop: 10/11/19 23:14 Last Infusion: 10/11/19 02:52 Dose: 0 mls/hr Documented by: [id number] Admin: 10/10/19 22:57 Dose: 100 mls/hr Documented by: [id number] Daptomycin 500 mg/ Syringe 10 mls @ 0 mls/min IV Q24H [facility]; Protocol Stop: 10/18/19 09:59 Last Admin: 10/11/19 12:17 Dose: Not Given Documented by: [id number] Ioversol (Optiray 320 100ml) 94 ml IV ONCE PRN PRN Reason: Interaction Checking Stop: 10/14/19 17:22 Last Admin: 10/10/19 17:24 Dose: 94 ml Documented by: [id number] Ketorolac Tromethamine (Toradol) 30 mg IV NOW [facility] Stop: 10/10/19 14:48 Last Admin: 10/10/19 16:09 Dose: 30 mg Documented by: [id number] Cosigned by: [id number] Lactobacillus Acidophilus (Floranex) 4 tab PO QIDM [facility] Stop: 11/10/19 11:59 Last Admin: 10/11/19 12:24 Dose: 4 tab Documented by: [id number] Lamotrigine (Lamictal) 200 mg PO BID [facility] Stop: 11/09/19 20:59 Last Admin: 10/11/19 08:36 Dose: 200 mg Documented by: [id number] Cosigned by: [id number] Admin: 10/11/19 00:49 Dose: 200 mg Documented by: [id number] Admin: 10/10/19 22:22 Dose: Not Given Documented by: [id number] Lidocaine/Epinephrine (Xylocaine/Epinephrine 1%) Confirm Administered Dose 20 ml .ROUTE .STK-MED ONE Stop: 10/10/19 22:51 Last Admin: 10/10/19 23:04 Dose: 6 ml Documented by: [id number] Lorazepam (Ativan) 1 mg SL NOW [facility] Stop: 10/10/19 16:25 Last Admin: 10/10/19 16:34 Dose: 1 mg Documented by: [id number] Miscellaneous (Order Awaiting Action) 1 ea N/A QS [facility] Stop: 11/10/19 00:00 Last Admin: 10/11/19 08:39 Dose: Not Given Documented by: [id number] Admin: 10/11/19 02:55 Dose: Not Given Documented by: [id number] Multivitamins/Minerals (Caltrate Plus) 1 tab PO DAILY [facility] Stop: 11/10/19 08:59 Last Admin: 10/11/19 08:32 Dose: 1 tab Documented by: [id number] Cosigned by: [id number] Mupirocin (Bactroban 2%) Confirm Administered Dose 66 appln .ROUTE .STK-MED ONE Stop: 10/10/19 22:53 Last Admin: 10/10/19 23:04 Dose: 66 appln Documented by: [id number] Sertraline HCl (Zoloft) 150 mg PO DAILY [facility] Stop: 11/10/19 08:59 Last Admin: 10/11/19 08:31 Dose: 150 mg Documented by: [id number] Cosigned by: [id number] Medical Decision Making Medical Records Attestation: I reviewed the patient's medical records. Home Medications Current Medication List: was personally reviewed by me Laboratory Data Attestation: I reviewed the patient's lab results. Result diagrams: 10/11/19 05:53 10/11/19 05:52 Lab Results 10/10/19 10/10/19 10/10/19 Range/Units 16:11 16:11 16:14 WBC 10.60 (4.8-10.8) K/uL RBC 4.06 L (4.2-5.4) M/uL Hgb 8.9 L (12.0-16.0) g/dL Hct 28.9 L (37-47) % MCV 71.2 L (80-100) fL MCH 21.9 L (25-34) pg MCHC 30.8 L (32-36) g/dL RDW Std Deviation 44.0 (36.4-46.3) fL RDW Coeff of Vane 16.9 H (11.5-14.5) % Plt Count 335 (130-400) K/uL MPV 10.2 (7.4-10.4) fL Immature Gran % (Auto) 0.2 % Neut % (Auto) 67.8 % Lymph % (Auto) 22.4 % [place] % (Auto) 8.3 % Eos % (Auto) 1.1 % Baso % (Auto) 0.2 % Immature Gran # (Auto) 0.02 (0.00-0.02) K/uL Neut # (Auto) 7.19 H (1.4-6.5) K/uL Lymph # (Auto) 2.37 (1.2-3.4) K/uL [place] # (Auto) 0.88 H (0.11-0.59) K/uL Eos # (Auto) 0.12 (0-0.5) K/uL Baso # (Auto) 0.02 (0-0.2) K/uL Giant Platelets 1+ Hypochromasia Present Ovalocytes 1+ Sodium 137 (136-145) mmol/L Potassium 3.4 L (3.5-5.1) mmol/L Chloride 104 (98-107) mmol/L Carbon Dioxide 25 (21-32) mmol/L Anion Gap 8.0 (3-11) BUN 7 (7-18) mg/dl Creatinine 0.71 (0.6-1.2) mg/dl Est Cr Clr Drug Dosing 143.8 ml/min Est GFR ( Amer) 127.0 Est GFR (Non-Af Amer) 109.6 BUN/Creatinine Ratio 9.3 L (10-20) Glucose 93 (70-99) mg/dl Lactate 1.7 (0.4-2.0) mmol/L Calcium 9.0 (8.5-10.1) mg/dl Imaging Data Attestation: I personally reviewed and interpreted this imaging study as follows: Radiologist's Impression: CT chest w/ contast There is significant subcutaneous soft tissue infiltration with overlying dermal thickening seen in the left infraaxillary region consistent with reported history of cellulitis. 2. There is subcutaneous fluid/phlegmonous change in this region as above. No organized/drainable fluid collection is seen at this time. 3. The lungs are clear. 4. Hepatomegaly and hepatic steatosis. 5. Additional findings as above. ACT 112: Negative or not required by law. Electronically signed by: Kuldeep Mcclellan M.D. 10/10/2019 5:33 PM Dictated: 10/10/191726 Transcribed: 10/10/191726 Blood Pressure Blood Pressure Findings: Elevated blood pressure Blood Pressure Disposition: further management by hospitalist QUIRINO Narrative Differential diagnosis: Worsening cellulitis, abscess, sepsis, among others This pt is a 34 y/o female that presents to the ED for a wound recheck. Sx are worsening. No drainable abscess noted on imaging. Due to failure of outpatient tx, the pt will be admitted for likely IV ABX therapy. Impression & Plan Cellulitis Discharge Plan Visit Data *Final* Discharge Date/Time: 10/10/19 20:32 Chief Complaint: Wound Recheck Stated Complaint: INFECTION UNDER LT ARM/SIDE, NEEDS RECHECKED ED Provider: Fab Chinchilla ED Midlevel Provider: America Middleton Discharge Problem: Cellulitis Patient Disposition: Admitted As Inpatient Condition: Fair Discharge Instructions Interventions: ED Discharge Assessment Last Done: 10/10/19 20:32
[2019-10-10] MEDS ORDERED: LORazepam 1 MG TAB SL STA (16:24)
[2019-10-10 16:25] LABS: Basophils # (auto) 0.02 K/uL (0-0.2); Basophils % (auto) 0.2 %; Eosinophils # (auto) 0.12 K/uL (0-0.5); Eosinophils % (auto) 1.1 %; Hematocrit (blood only) 28.9 % (37-47); Hemoglobin 8.9 g/dL (12.0-16.0); Immature Granulocytes # (auto) 0.02 K/uL (0.00-0.02); Immature Granulocytes % (auto) 0.2 %; Lymphocytes # (auto) 2.37 K/uL (1.2-3.4); Lymphocytes % (auto) 22.4 %; Mean Corpuscular Hemoglobin 21.9 pg (25-34); Mean Corpuscular Hgb Conc 30.8 g/dL (32-36); Mean Corpuscular Volume 71.2 fL (80-100); Mean Platelet Volume 10.2 fL (7.4-10.4); Monocytes # (auto) 0.88 K/uL (0.11-0.59); Monocytes % (auto) 8.3 %; Neutrophils # (auto) 7.19 K/uL (1.4-6.5); Neutrophils % (auto) 67.8 %; Platelet Count 335 K/uL (130-400); RDW Coefficient of Variation 16.9 % (11.5-14.5); Red Blood Count 4.06 M/uL (4.2-5.4)
[2019-10-10 16:41] LABS: BUN Creatinine Ratio 9.3 (10-20); Creatinine Clr Calc Pharmacy 143.8 ml/min; Est GFR (Non-African American) 109.6; Potassium 3.4 mmol/L (3.5-5.1)
[2019-10-10 16:54] LABS: Giant Platelets 1+; Hypochromasia Present; Ovalocytes 1+
[2019-10-10] MEDS ORDERED: IOVERSOL 100ml IV PRN (17:23)
--- NOTE | 2019-10-10 17:34 | CT Scan Report ---
CT SCAN OF THE CHEST WITH IV CONTRAST CLINICAL HISTORY: Left axillary cellulitis. COMPARISON STUDY: Chest CT scans dated 02/18/2019 and 07/30/2017. TECHNIQUE: Following the IV administration of 94 cc of Optiray 320, CT scan of the thorax was perform ed from the thoracic inlet to the upper abdomen. Images are reviewed in the axial, sagittal, and lizbet nal planes. IV contrast was administered without complication. A dose lowering technique was utilize d adhering to the principles of ALARA. CT DOSE: 920.06 mGy.cm FINDINGS: Soft tissues: There is extensive subcutaneous soft tissue induration with overlying dermal thickening seen in the left infra-axillary soft tissues. This extends along the lateral chest wall posterior to the breast. There is phlegmonous change/subcutaneous fluid in this region, which measures approximat snehal 7.5 x 6 x 5 cm in maximum dimension. No organized/drainable fluid collection is seen at this time . Thyroid: Imaged portions of the thyroid gland are normal in size and attenuation. Thoracic aorta: The thoracic aorta is normal in caliber and demonstrates standard 3-vessel arch anato my. No dissection is seen. Pulmonary vasculature: The pulmonary trunk is normal in caliber. There are no filling defects identif ied in the central pulmonary vessels to indicate pulmonary embolus. Note that this examination was no t protocoled for evaluation of the pulmonary arteries. Heart: The heart is normal in size and without pericardial effusion. Lungs and pleural spaces: The lungs and pleural spaces are clear. The trachea and central airways are patent. Mediastinum: There is no mediastinal lymphadenopathy. Indira: Clear. Axillae: There is no axillary lymphadenopathy. Upper abdomen: The liver is enlarged and steatotic. Cholecystectomy clips are noted. There are change s of Navarro-en-Y gastric bypass surgery. Skeletal structures: No lytic or blastic bony lesions are seen. IMPRESSION: 1. There is significant subcutaneous soft tissue infiltration with overlying dermal thickening seen i n the left infraaxillary region consistent with reported history of cellulitis. 2. There is subcutaneous fluid/phlegmonous change in this region as above. No organized/drainable flu id collection is seen at this time. 3. The lungs are clear. 4. Hepatomegaly and hepatic steatosis. 5. Additional findings as above. ACT 112: Negative or not required by law. Electronically signed by: Kuldeep Mcclellan M.D. 10/10/2019 5:33 PM
[2019-10-10] MEDS ORDERED: CIPROFLOXACIN 400 MG/200 ML BAG IV STA (18:06)
--- NOTE | 2019-10-10 19:54 | History & Physical Report ---
Date of Service October 10, 2019 Assessment & Plan (1) Hidradenitis suppurativa of left axilla: With ongoing cellulitis and now with possible antibioma/abscess formation Received a dose of Dalvance about 3 days ago without any improvement Will start intravenous cefepime to cover Pseudomonas Surgery consult for possible I&D Monitor CBC (2) Cellulitis: As above (3) Depression: History of anxiety and depression We will continue current medications History of gastric bypass and history of abdominal hernia repair with mesh with complications following surgery No acute problem for now DVT prophylaxis SCDs Increase ambulation CODE STATUS Full History of Present Illness Chief Complaint: Worsening left axillary abscess/hidradenitis suppurativa Primary Care Provider: Neeraj Jorge She is a 34 years old obese female with significant past medical history of hidradenitis separativa involving mainly left axilla, anxiety/depression, history of respiratory failure following abdominal procedure has been complaining of increasing swelling with discharge from the left axillary wound for some time. A few weeks back she was seen by her primary care doctor and was given ceftriaxone IM followed by oral clindamycin. She was seen in the ER with increasing symptoms and was given 1 dose of Dalvance about 3 days ago. She is back in the ER for a follow-up and was noted to have increasing swelling and redness involving the left axilla. She was advised for admission and intravenous antibiotic to cover other organisms especially Pseudomonas. No fever and/or chills, no significant drainage from the wound, no nausea no vomiting, and no other symptoms. She was afebrile with normal white count and a CAT scan of the axillary region did not show any abscess. She was admitted to the medical floor and was started with intravenous cefepime and a surgical consultation with taking for possible drainage. Allergies Allergy/AdvReac Type Severity Reaction Status Date / Time amoxicillin [From Augmentin] Allergy Severe Possible Unverified 10/08/19 16:00 ARDS clavulanic acid Allergy Severe Possible Unverified 10/08/19 16:00 [From Augmentin] ARDS Home Medications Home Medications Medication Instructions Recorded Confirmed Type acetaminophen [Tylenol Extra 500 mg PO QID PRN #0 tab 09/08/17 10/08/19 History Strength] bumetanide 1 mg PO DIRECTED PRN 90 Days 09/08/17 10/08/19 History #180 tab calcium carbonate-vitamin D3 1 tab PO DAILY #0 09/08/17 10/08/19 History [Calcium 600 + D(3)] potassium chloride 20 meq PO DIRECTED PRN #0 tab 09/08/17 10/08/19 History alprazolam 0.25 mg PO DIRECTED PRN 10/08/19 10/08/19 History bupropion HCl 150 mg PO BID 10/08/19 10/08/19 History buspirone 15 mg PO BID 10/08/19 10/08/19 History clindamycin HCl 150 mg PO QID 10/08/19 10/08/19 History clindamycin phosphate 1 applic TOPICAL DAILY 10/08/19 10/08/19 History ferrous sulfate 325 mg PO BID 10/08/19 10/08/19 History guanfacine 1 mg PO BID 10/08/19 10/08/19 History hydrocodone-acetaminophen 1 tab PO QID PRN 10/08/19 10/08/19 History lamotrigine 200 mg PO BID 10/08/19 10/08/19 History lisdexamfetamine [Vyvanse] 40 mg PO QAM 10/08/19 10/08/19 History medroxyprogesterone 150 mg IM Q90D 10/08/19 10/08/19 History medroxyprogesterone 150 mg IM Q90D 10/08/19 10/08/19 History pantoprazole 40 mg PO DAILY PRN 10/08/19 10/08/19 History pediatric multivitamin no.49 1 tab PO BID 10/08/19 10/08/19 History [Flintstones Gummies] sertraline 150 mg PO DAILY 10/08/19 10/08/19 History temazepam 15 mg PO DIRECTED PRN 10/08/19 10/08/19 History Past Med/Surg History Medical History Depression Surgical History (Updated 10/10/19 @ 19:43 by Josh Bertrand MD) Gastric bypass status for obesity H/O hernia repair Social History Preferred Language: Kinyarwanda Feels Safe at Home: Yes Smoking Status: Never smoker Review of Systems Review of Systems: All systems reviewed & are unremarkable except as noted in HPI & below Physical Exam Physical Exam: Lying in bed comfortably Constitutional: well developed, well nourished, + acute distress (Very anxious), + ill appearing and + obese Eyes: PERRL, conjunctivae normal, anicteric sclerae ENMT: external ear and nose normal, oropharynx normal Neck: trachea midline, no thyromegaly Respiratory: normal respiratory effort Auscultation: lungs clear to auscultation bilaterally Cardiovascular: Rate/Rhythm: regular rate and regular rhythm Heart Sounds: no murmur Gastrointestinal (Abdomen): Inspection/Auscultation: abdomen normal to inspection and + abdomen distended Percussion/Palpation: abdomen soft; abdomen nontender Musculoskeletal: No acute arthritis Skin: Left axillary area-a lump about the size of a tennis ball with in duration and surrounding edema and redness without fluctuation Neurologic: moves all extremities; no focal motor deficits Lymphatic: no cervical or axillary lymphadenopathy Results & Data Vital Signs (Past 12 Hours) Vital Signs Temp Pulse Pulse Resp BP BP Pulse Ox 10/10/19 16:06 80 18 122/66 97 10/10/19 14:21 37.1 C 86 20 163/100 H 100 Laboratory Results Short CBC 10/10/19 Range/Units 16:11 WBC 10.60 (4.8-10.8) K/uL Hgb 8.9 L (12.0-16.0) g/dL Hct 28.9 L (37-47) % Plt Count 335 (130-400) K/uL BMP 10/10/19 16:11 Sodium 137 Potassium 3.4 L Chloride 104 Carbon Dioxide 25 BUN 7 Creatinine 0.71 Glucose [address]cium 9[address] of the chest-showed significant subcutaneous soft tissue infiltration with overlying dermal thickening in the left infra axillary region consistent with reported history of cellulitis, there is subcutaneous fluid/phlegmonous change in this region no organized/drainable fluid collection, hepatomegaly with hepatic steatosis. Medications Administered Current Inpatient Medications Cefepime HCl 2,000 mg/ Syringe 20 mls @ 5.5 mls/min IV Q12H [facility]; Protocol Stop: 10/17/19 19:29 Ioversol (Optiray 320 100ml) 94 ml IV ONCE PRN PRN Reason: Interaction Checking Stop: 10/14/19 17:22 Last Admin: 10/10/19 17:24 Dose: 94 ml Documented by: Code Status & VTE Plan VTE Prophylaxis Plan VTE Prophylaxis will be ordered: Yes
[2019-10-10] MEDS ORDERED: TEMAZEPAM 15 MG CAPSULE PO PRN (20:41)
[2019-10-10] MEDS ORDERED: BUMETANIDE 1 MG TAB PO PRN (20:41)
[2019-10-10] MEDS ORDERED: ALPRAZolam 0.25 MG TABLET PO PRN (20:41)
[2019-10-10] MEDS ORDERED: POTASSIUM CHLORIDE 20 MEQ TABCR PO PRN (20:41)
[2019-10-10] MEDS ORDERED: PANTOprazole 40 MG TAB PO PRN (20:41)
--- NOTE | 2019-10-10 21:43 | Surgery Consultation ---
Date of Consultation October 10, 2019 Assessment & Plan (1) Cutaneous abscess of left axilla: pt is a 34 year-old female who was admitted to hospital for left axillary infection, IMP: left axillary cellulitis, abscess Plan, U/S study to R/O left axillary abscess, iv antibiotic, NPO, I recommend to do I/D left axillary abscess under sedation + local anesthesia if U/S confirm diagnosis- abscess, D/W benefits, risks and alternatives of the surgery, History of Present Illness Attending Physician: Josh Bertrand MD Chief Complaint: Worsening left axillary abscess/hidradenitis suppurativa Primary Care Provider: Neeraj Jorge She is a 34 years old obese female with significant past medical history of hidradenitis separative involving mainly left axilla, anxiety/depression, history of respiratory failure following abdominal procedure has been complaining of increasing swelling with discharge from the left axillary wound for some time. A few weeks back she was seen by her primary care doctor and was given ceftriaxone IM followed by oral clindamycin. She was seen in the ER with increasing symptoms and was given 1 dose of Dalvance about 3 days ago. She is back in the ER for a follow-up and was noted to have increasing swelling and redness involving the left axilla. She was advised for admission and intravenous antibiotic to cover other organisms especially Pseudomonas. No fever and/or chills, no significant drainage from the wound, no nausea no vomiting, and no other symptoms. She was afebrile with normal white count and a CAT scan of the axillary region did not show any abscess. She was admitted to the medical floor and was started with intravenous cefepime and a surgical consultation with taking for possible drainage. I ( Gabriel Raygoza) am asked for consult left axillary abscess, I reviewed pt's H/P, labs, and CT scan with pt, Allergies Allergy/AdvReac Type Severity Reaction Status Date / Time amoxicillin [From Augmentin] Allergy Severe Possible Unverified 10/08/19 16:00 ARDS clavulanic acid Allergy Severe Possible Unverified 10/08/19 16:00 [From Augmentin] ARDS Home Medications Home Medications Medication Instructions Recorded Confirmed Type acetaminophen [Tylenol Extra 500 mg PO QID PRN #0 tab 09/08/17 10/08/19 History Strength] bumetanide 1 mg PO DIRECTED PRN 90 Days 09/08/17 10/08/19 History #180 tab calcium carbonate-vitamin D3 1 tab PO DAILY #0 09/08/17 10/08/19 History [Calcium 600 + D(3)] potassium chloride 20 meq PO DIRECTED PRN #0 tab 09/08/17 10/08/19 History alprazolam 0.25 mg PO DIRECTED PRN 10/08/19 10/08/19 History bupropion HCl 150 mg PO BID 10/08/19 10/08/19 History buspirone 15 mg PO BID 10/08/19 10/08/19 History clindamycin HCl 150 mg PO QID 10/08/19 10/08/19 History clindamycin phosphate 1 applic TOPICAL DAILY 10/08/19 10/08/19 History ferrous sulfate 325 mg PO BID 10/08/19 10/08/19 History guanfacine 1 mg PO BID 10/08/19 10/08/19 History hydrocodone-acetaminophen 1 tab PO QID PRN 10/08/19 10/08/19 History lamotrigine 200 mg PO BID 10/08/19 10/08/19 History lisdexamfetamine [Vyvanse] 40 mg PO QAM 10/08/19 10/08/19 History medroxyprogesterone 150 mg IM Q90D 10/08/19 10/08/19 History medroxyprogesterone 150 mg IM Q90D 10/08/19 10/08/19 History pantoprazole 40 mg PO DAILY PRN 10/08/19 10/08/19 History pediatric multivitamin no.49 1 tab PO BID 10/08/19 10/08/19 History [Flintstones Gummies] sertraline 150 mg PO DAILY 10/08/19 10/08/19 History temazepam 15 mg PO DIRECTED PRN 10/08/19 10/08/19 History Past Med/Surg History Medical History Depression Surgical History (Updated 10/10/19 @ 19:43 by Josh Bertrand MD) Gastric bypass status for obesity H/O hernia repair Social History Preferred Language: Latvian Feels Safe at Home: Yes Smoking Status: Never smoker Review of Systems Review of Systems: All systems reviewed & are unremarkable except as noted in HPI & below Allergies Allergy/AdvReac Type Severity Reaction Status Date / Time amoxicillin [From Augmentin] Allergy Severe Possible Unverified 10/08/19 16:00 ARDS clavulanic acid Allergy Severe Possible Unverified 10/08/19 16:00 [From Augmentin] ARDS Home Medications Home Medications Medication Instructions Recorded Confirmed Type acetaminophen [Tylenol Extra 500 mg PO QID PRN #0 tab 09/08/17 10/08/19 History Strength] bumetanide 1 mg PO DIRECTED PRN 90 Days 09/08/17 10/08/19 History #180 tab calcium carbonate-vitamin D3 1 tab PO DAILY #0 09/08/17 10/08/19 History [Calcium 600 + D(3)] potassium chloride 20 meq PO DIRECTED PRN #0 tab 09/08/17 10/08/19 History alprazolam 0.25 mg PO DIRECTED PRN 10/08/19 10/08/19 History bupropion HCl 150 mg PO BID 10/08/19 10/08/19 History buspirone 15 mg PO BID 10/08/19 10/08/19 History clindamycin HCl 150 mg PO QID 10/08/19 10/08/19 History clindamycin phosphate 1 applic TOPICAL DAILY 10/08/19 10/08/19 History ferrous sulfate 325 mg PO BID 10/08/19 10/08/19 History guanfacine 1 mg PO BID 10/08/19 10/08/19 History hydrocodone-acetaminophen 1 tab PO QID PRN 10/08/19 10/08/19 History lamotrigine 200 mg PO BID 10/08/19 10/08/19 History lisdexamfetamine [Vyvanse] 40 mg PO QAM 10/08/19 10/08/19 History medroxyprogesterone 150 mg IM Q90D 10/08/19 10/08/19 History medroxyprogesterone 150 mg IM Q90D 10/08/19 10/08/19 History pantoprazole 40 mg PO DAILY PRN 10/08/19 10/08/19 History pediatric multivitamin no.49 1 tab PO BID 10/08/19 10/08/19 History [Flintstones Gummies] sertraline 150 mg PO DAILY 10/08/19 10/08/19 History temazepam 15 mg PO DIRECTED PRN 10/08/19 10/08/19 History Patient History Medical History (Updated 10/10/19 @ 21:44 by Gabriel Raygoza MD) Depression Surgical History (Updated 10/10/19 @ 19:43 by Josh Bertrand MD) Gastric bypass status for obesity H/O hernia repair Social History Preferred Language: Latvian Communication Ability: Effective Steam Tender Required: No Beliefs That Will Affect Care: None Current Living Situation: Other Current Living Situation Comment: lives with her 3 nawaf old son Other Information That Helps Us Care for You: No Feels Safe at Home: Yes Safety Concerns: Feels Safe At This Time Smoking Status: Never smoker Do You Dip or Chew Tobacco: No ; Second Hand Exposure: No ; Tobacco Cessation Education Requested by Patient: No Hx Alcohol Use: No Hx Substance Use: No Review of Systems Review of Systems: All systems reviewed & are unremarkable except as noted in HPI & below Physical Exam Constitutional: WD/WN, vitals as above well developed and well nourished ENMT: external ear and nose normal, oropharynx normal Neck: trachea midline, no thyromegaly Respiratory: normal respiratory effort, lungs clear to auscultation Cardiovascular: RRR, no murmur, no edema Rate/Rhythm: regular rate and regular rhythm Heart Sounds: normal S1 and normal S2 Gastrointestinal (Abdomen): normal bowel sounds, soft, nontender, no hepatosplenomegaly Percussion/Palpation: abdomen soft Musculoskeletal: no cyanosis or clubbing, extremities motor strength 5/5 Skin: redness and tenderness at left axillary, size about 21h92hs, Neurologic: patellar DTR's 2+ bilat, sensation intact Psychiatric: Orientation: alert and oriented x 3 Results & Data Vital Signs (Past 12 Hours) Vital Signs Temp Pulse Pulse Pulse Resp BP BP 10/10/19 20:35 36.4 C L 81 16 120/82 10/10/19 20:32 73 16 136/105 H 10/10/19 20:28 73 16 136/105 H 10/10/19 16:06 80 18 122/66 10/10/19 14:21 37.1 C 86 20 163/100 H BP Pulse Ox 10/10/19 20:35 120/82 99 10/10/19 20:32 100 10/10/19 20:28 100 10/10/19 16:06 97 10/10/19 14:21 100 Laboratory Results Abnormal lab results 10/10/19 10/10/19 Range/Units 16:11 16:11 RBC 4.06 L (4.2-5.4) M/uL Hgb 8.9 L (12.0-16.0) g/dL Hct 28.9 L (37-47) % MCV 71.2 L (80-100) fL MCH 21.9 L (25-34) pg MCHC 30.8 L (32-36) g/dL RDW Coeff of Vane 16.9 H (11.5-14.5) % Neut # (Auto) 7.19 H (1.4-6.5) K/uL [place] # (Auto) 0.88 H (0.11-0.59) K/uL Potassium 3.4 L (3.5-5.1) mmol/L BUN/Creatinine Ratio 9.3 L (10-20) Diagnostic Findings CT SCAN OF THE CHEST WITH IV CONTRAST CLINICAL HISTORY: Left axillary cellulitis. COMPARISON STUDY: Chest CT scans dated 02/18/2019 and 07/30/2017. TECHNIQUE: Following the IV administration of 94 cc of Optiray 320, CT scan of the thorax was performed from the thoracic inlet to the upper abdomen. Images are reviewed in the axial, sagittal, and coronal planes. IV contrast was administered without complication. A dose lowering technique was utilized adhering to the principles of ALARA. CT DOSE: 920.06 mGy.cm FINDINGS: Soft tissues: There is extensive subcutaneous soft tissue induration with overlying dermal thickening seen in the left infra-axillary soft tissues. This extends along the lateral chest wall posterior to the breast. There is phlegmonous change/subcutaneous fluid in this region, which measures approximately 7.5 x 6 x 5 cm in maximum dimension. No organized/drainable fluid collection is seen at this time. Thyroid: Imaged portions of the thyroid gland are normal in size and attenuation. Thoracic aorta: The thoracic aorta is normal in caliber and demonstrates standard 3-vessel arch anatomy. No dissection is seen. Pulmonary vasculature: The pulmonary trunk is normal in caliber. There are no filling defects identified in the central pulmonary vessels to indicate pulmonary embolus. Note that this examination was not protocoled for evaluation of the pulmonary arteries. Heart: The heart is normal in size and without pericardial effusion. Lungs and pleural spaces: The lungs and pleural spaces are clear. The trachea and central airways are patent. Mediastinum: There is no mediastinal lymphadenopathy. Indira: Clear. Axillae: There is no axillary lymphadenopathy. Upper abdomen: The liver is enlarged and steatotic. Cholecystectomy clips are noted. There are changes of Navarro-en-Y gastric bypass surgery. Skeletal structures: No lytic or blastic bony lesions are seen. IMPRESSION: 1. There is significant subcutaneous soft tissue infiltration with overlying dermal thickening seen in the left infraaxillary region consistent with reported history of cellulitis. 2. There is subcutaneous fluid/phlegmonous change in this region as above. No organized/drainable fluid collection is seen at this time. 3. The lungs are clear. 4. Hepatomegaly and hepatic steatosis. 5. Additional findings as above.
[2019-10-10] MEDS: CEFEPIME 2,000 MG in SYRINGE 7.5 ML IV SCH (22:01)
[2019-10-10] MEDS ORDERED: LABETALOL HCL IV 5 MG/ML 20ML IV PRN (22:16)
[2019-10-10] MEDS ORDERED: ePHEDrine sulfate 50 MG/ML AMP IV PRN (22:16)
[2019-10-10] MEDS ORDERED: PHENYLEPHRINE 100MCG/ML 5ML SYR IV PRN (22:16)
[2019-10-10] MEDS ORDERED: ONDANSETRON INJ 2 MG/ML 2 ML VIAL IV PRN (22:16)
[2019-10-10] MEDS ORDERED: HYDROmorphone INJ 1 MG/ML SYRINGE IV PRN (22:16)
[2019-10-10] MEDS ORDERED: MEPERIDINE HCL 25 MG/ML CARP IV PRN (22:16)
[2019-10-10] MEDS ORDERED: ATROPINE SULFATE 0.1 MG/ML 10ML SYR IV PRN (22:16)
[2019-10-10] MEDS ORDERED: fentaNYL citrate 100 MCG/2 ML VIAL IV PRN (22:16)
[2019-10-10] MEDS: GUANFACINE HCL 1 MG TAB PO SCH (22:21)
[2019-10-10] MEDS: BusPIRone 15 MG TAB PO SCH (22:21)
[2019-10-10] MEDS: lamoTRIgine 100 MG TAB PO SCH (22:22)
--- NOTE | 2019-10-10 22:35 | Anesthesiology Consultation ---
Date of Service October 10, 2019 Assessment & Plan (1) Encounter for pre-operative examination: Chart Review Chart Review: Acceptable Risk for Surgery and Patient NOT seen in Pre Admission Testing Consults Requested none History Surgery Operation Date: 10/10/19 22:20 Proposed Procedures p Incision and Drainage Left Axillary Abscess(Left) - Gabriel Raygoza MD Height/Weight Height: 5 ft 2 in Weight: 132.7 kg Allergies Allergy/AdvReac Type Severity Reaction Status Date / Time amoxicillin [From Augmentin] Allergy Severe Possible Unverified 10/08/19 16:00 ARDS clavulanic acid Allergy Severe Possible Unverified 10/08/19 16:00 [From Augmentin] ARDS Medications Home Medications Medication Instructions Recorded Confirmed Last Taken acetaminophen [Tylenol Extra 500 mg PO QID PRN #0 tab 09/08/17 10/08/19 10/08/19 Strength] 100 mg bumetanide 1 mg PO DIRECTED PRN 90 Days 09/08/17 10/08/19 Unknown #180 tab calcium carbonate-vitamin D3 1 tab PO DAILY #0 09/08/17 10/08/19 10/04/19 [Calcium 600 + D(3)] potassium chloride 20 meq PO DIRECTED PRN #0 tab 09/08/17 10/08/19 Unknown alprazolam 0.25 mg PO DIRECTED PRN 10/08/19 10/08/19 10/07/19 bupropion HCl 150 mg PO BID 10/08/19 10/08/19 10/08/19 buspirone 15 mg PO BID 10/08/19 10/08/19 10/08/19 clindamycin HCl 150 mg PO QID 10/08/19 10/08/19 10/08/19 clindamycin phosphate 1 applic TOPICAL DAILY 10/08/19 10/08/19 10/08/19 ferrous sulfate 325 mg PO BID 10/08/19 10/08/19 10/08/19 guanfacine 1 mg PO BID 10/08/19 10/08/19 10/08/19 hydrocodone-acetaminophen 1 tab PO QID PRN 10/08/19 10/08/19 10/08/19 lamotrigine 200 mg PO BID 10/08/19 10/08/19 10/08/19 lisdexamfetamine [Vyvanse] 40 mg PO QAM 10/08/19 10/08/19 10/08/19 medroxyprogesterone 150 mg IM Q90D 10/08/19 10/08/19 Unknown medroxyprogesterone 150 mg IM Q90D 10/08/19 10/08/19 07/13/19 pantoprazole 40 mg PO DAILY PRN 10/08/19 10/08/19 10/08/19 pediatric multivitamin no.49 1 tab PO BID 10/08/19 10/08/19 10/08/19 [Vinod Mckinney] sertraline 150 mg PO DAILY 10/08/19 10/08/19 10/08/19 temazepam 15 mg PO DIRECTED PRN 10/08/19 10/08/19 10/07/19 Active Medications Generic Name Dose Route Start Last Admin Trade Name Freq PRN Reason Stop Dose Admin Buspirone HCl 15 mg 10/10/19 21:00 10/10/19 22:21 Buspar PO 11/09/19 20:59 Not Given BID MARILYN Guanfacine HCl 1 mg 10/10/19 21:00 10/10/19 22:21 Guanfacine Hcl PO 11/09/19 20:59 Not Given BID MARILYN Cefepime HCl 2,000 mg/ Syringe 20 mls @ 5.5 mls/min 10/10/19 21:00 10/10/19 22:01 IV 10/17/19 20:59 5.5 mls/min Q12H MARILYN Administration Protocol Lamotrigine 200 mg 10/10/19 21:00 10/10/19 22:22 Lamictal PO 11/09/19 20:59 Not Given BID MARILYN Past Medical History Medical History (Updated 10/10/19 @ 22:35 by Demarcus Grissom MD) Anemia ARDS (adult respiratory distress syndrome) 2016 four days after of her son, unknown cause but possibly due to preeclampsia Depression Hidradenitis suppurativa of left axilla Morbid obesity Past Surgical History Surgical History (Updated 10/10/19 @ 22:34 by Demarcus Grissom MD) Gastric bypass status for obesity H/O hernia repair Previous section Social History Smoking Status: Never smoker Do You Dip or Chew Tobacco: No Hx Alcohol Use: No Hx Substance Use: No substance use type: does not use Physical Exam Vital Signs Last Vital Signs Temp 36.7 C 10/10/19 22:19 Pulse 93 H 10/10/19 22:19 Resp 18 10/10/19 22:19 BP 125/81 10/10/19 22:19 Pulse Ox 97 10/10/19 22:19 Testing Laboratory Results 10/10/19 16:11 10/10/19 16:11
[2019-10-10] MEDS ORDERED: fentaNYL citrate 100 MCG/2 ML VIAL ONE ×2 (22:43→22:58)
[2019-10-10] MEDS ORDERED: MIDAZOLAM HCL 1 MG/ML 2ML VIAL ONE (22:44)
[2019-10-10] MEDS ORDERED: BUPIVACAINE/EPINEPHRINE 0.5% MPF 1:200,000 10 ML VIAL ONE (22:50)
[2019-10-10] MEDS ORDERED: LIDOCAINE/EPINEPHRINE 1% 20 ML VIAL ONE (22:50)
--- NOTE | 2019-10-10 22:51 | History & Physical Bridge Note ---
Date of Service October 10, 2019 History & Physical Bridge Note I have examined the patient, reviewed the History & Physical and in the interval since the performance of the History & Physical I have noted the following changes of clinical significance: no changes noted
[2019-10-10] MEDS ORDERED: LIDOCAINE HCL 2% 2 ML VIAL/AMP(20MG/ML) INFIL ONE (22:52)
[2019-10-10] MEDS ORDERED: MUPIROCIN 2% OINT 22 GM TUBE ONE (22:52)
[2019-10-10] MEDS ORDERED: PROPOFOL IV EMULSION 10 MG/ML 20 ML VIAL IV ONE (22:52)
[2019-10-10] MEDS ORDERED: CLINDAMYCIN PHOS 300 MG/2 ML VIAL ONE (22:56)
--- NOTE | 2019-10-10 23:11 | Post Operative Brief Note ---
Immediate Post Op Note v1 Date of Surgery October 10, 2019 Pre & Post Diagnosis Operation Date: 10/10/19 22:20 Pre-Op Diagnosis: left AXILLARY ABSCESS,HIDRADENITIS SUPPURATIVA Post-Op Diagnosis: left AXILLARY ABSCESS,HIDRADENITIS SUPPURATIVA I identified the patient and participated in the time-out.: Yes Procedure Operation Date: 10/10/19 22:20 Actual Procedures p Incision and Drainage Left Axillary Abscess(Left) - Gabriel Raygoza MD Surgeon Gabriel Raygoza MD Application Support Developer surgical scrub technologist Estimated Blood Loss 5 Findings Consistent with Post-Op Diagnosis left axillary abscess, 30 ml pus came out, wound culture sent Fluids 300ml Specimens wound culture Drains Other (packing the wound) Anesthesia Type Local Complications none Disposition Accompanied Patient To Recovery: Yes Disposition: Recovery Room Overlapping Procedure I was immediately available: during the entire case.
[2019-10-10] MEDS ORDERED: CLINDAMYCIN 600 MG/54 ML BAG IV SCH (23:15)
--- NOTE | 2019-10-10 23:20 | Anesthesiology Progress Note ---
Date of Service October 10, 2019 Anesthesia Post Procedure Vital Signs Vital Signs: Temp Pulse Pulse Pulse Resp BP BP 10/10/19 22:19 36.7 C 93 H 18 10/10/19 20:35 36.4 C L 81 16 120/82 10/10/19 20:32 73 16 136/105 H 10/10/19 20:28 73 16 136/105 H 10/10/19 16:06 80 18 122/66 10/10/19 14:21 37.1 C 86 20 163/100 H BP Pulse Ox 10/10/19 22:19 125/81 97 10/10/19 20:35 120/82 99 10/10/19 20:32 100 10/10/19 20:28 100 10/10/19 16:06 97 10/10/19 14:21 100 Pain Intensity Left Back: Pain Intensity: 4 Transfer of Care Handoff Completed per policy Notes Mental Status: alert / awake / arousable Patient Amnestic to Procedure: Yes Nausea / Vomiting: adequately controlled Pain: adequately controlled Airway Patency, RR, SpO2: stable & adequate BP & HR: stable & adequate Hydration State: stable & adequate Anesthetic Complications: no major complications apparent and Pt Satisfied with anesthetic care
[2019-10-10] MEDS: HYDROCODONE/ACETAMINOPHEN 10/325 TAB PO PRN (23:35)
--- NOTE | 2019-10-11 00:07 | Operative Report ---
DATE OF OPERATION: 10/10/2019 PREOPERATIVE DIAGNOSIS: Left axillary abscess. POSTOPERATIVE DIAGNOSIS: Left axillary abscess. OPERATION: Incision and drainage left axillary abscess. SURGEON: Gabriel Raygoza MD. ANESTHESIA: Conscious sedation plus local. ESTIMATED BLOOD LOSS: About 5 mL. FINDINGS: Left-sided axillary abscess, pus 30 mL come out. Wound culture sent. COMPLICATIONS: None. INDICATIONS FOR THE PROCEDURE: This is a 34-year-old female who present to ED with 1 week history left-sided axillary pain and infection. The patient was admitted to hospital for left-sided axillary abscess. I recommend to do the I and D left axilla under sedation with local. I did talk to the patient about the benefit, the risk, alternate procedure. I indicated the risks may include but not limited such as bleeding, infection, recurrence. The patient understands. She signed informed consent and I answered all questions. DETAILS OF PROCEDURE: We brought the patient to the OR, put the patient on the supine position. The patient require SCD on bilateral legs to prevent DVT. Also, the patient received 600 mg clindamycin IV for prophylactic antibiotic and the patient received conscious sedation by the Anesthesiology. The left-sided axilla was prepped and draped in routine sterile fashion. The patient had significant redness, tenderness on the left-sided axilla finding about 10 x 15 cm. After time out, I injected local anesthesia by using 1% lidocaine mixed with 0.5% Marcaine around the left-sided axillary area. Then I made about a 3 cm incision, reached the subcutaneous layer. There were pus came out immediately. We dissected the abscess cavity, at least 30 mL of pus came out. We did send the wound cultures. Using normal saline, flushed the wound. Then, we used half inch Kerlix for packing the wound with bacitracin. Hemostasis obtained. Then we put a dressing on. The patient tolerated the procedure well. All instrument, needle and sponge count were correct x2 at the end of the case. The patient transferred to Recovery Room in stable condition. The wound culture sent to labs.. I attest to the content of the Intraoperative Record and any orders documented therein. Any exceptions are noted below. BRITT
[2019-10-11] MEDS: BuPROPion SR 150 MG TABCR PO SCH ×2 (00:48→08:36)
[2019-10-11] MEDS: GUANFACINE HCL 1 MG TAB PO SCH ×2 (00:48→08:35)
[2019-10-11] MEDS: BusPIRone 15 MG TAB PO SCH ×2 (00:49→08:30)
[2019-10-11] MEDS: lamoTRIgine 100 MG TAB PO SCH ×2 (00:49→08:36)
[2019-10-11 06:18] LABS: Basophils # (auto) 0.02 K/uL (0-0.2); Basophils % (auto) 0.3 %; Eosinophils # (auto) 0.16 K/uL (0-0.5); Eosinophils % (auto) 2.2 %; Hematocrit (blood only) 27.2 % (37-47); Hemoglobin 8.4 g/dL (12.0-16.0); Immature Granulocytes # (auto) 0.02 K/uL (0.00-0.02); Immature Granulocytes % (auto) 0.3 %; Lymphocytes # (auto) 2.29 K/uL (1.2-3.4); Lymphocytes % (auto) 31.3 %; Mean Corpuscular Hemoglobin 21.9 pg (25-34); Mean Corpuscular Hgb Conc 30.9 g/dL (32-36); Mean Platelet Volume 9.4 fL (7.4-10.4); Monocytes # (auto) 0.68 K/uL (0.11-0.59); Monocytes % (auto) 9.3 %; Neutrophils # (auto) 4.15 K/uL (1.4-6.5); Neutrophils % (auto) 56.6 %; Platelet Count 297 K/uL (130-400); RDW Coefficient of Variation 16.9 % (11.5-14.5); RDW Standard Deviation 44.1 fL (36.4-46.3); Red Blood Count 3.83 M/uL (4.2-5.4); White Blood Count 7.32 K/uL (4.8-10.8)
[2019-10-11 06:40] LABS: Hypochromasia Present
[2019-10-11] MEDS: HYDROCODONE/ACETAMINOPHEN 10/325 TAB PO PRN (07:31)
[2019-10-11] MEDS ORDERED: FERROUS SULFATE 325 MG TAB PO SCH (08:00)
--- NOTE | 2019-10-11 08:23 | Anesthesiology Progress Note ---
Date of Service October 11, 2019 Anesthesia Post Procedure Vital Signs Vital Signs: Temp Pulse Pulse Pulse Resp BP BP 10/11/19 07:25 36.5 C 83 16 10/11/19 03:35 36.6 C 69 16 10/11/19 02:34 36.6 C 72 16 10/11/19 01:36 36.6 C 70 16 115/77 10/11/19 01:09 36.6 C 76 16 10/11/19 00:35 36.4 C L 75 16 10/11/19 00:15 36.2 C L 79 18 10/11/19 00:10 36.3 C L 77 18 10/11/19 00:00 36.3 C L 78 18 10/10/19 23:50 77 16 10/10/19 23:40 36.3 C L 78 18 10/10/19 23:30 36.2 C L 79 18 142/82 H 10/10/19 23:20 36.2 C L 86 18 10/10/19 23:15 36.2 C L 86 18 10/10/19 22:19 36.7 C 93 H 18 10/10/19 20:35 36.4 C L 81 16 120/82 10/10/19 20:32 73 16 136/105 H 10/10/19 20:28 73 16 136/105 H 10/10/19 16:06 80 18 122/66 10/10/19 14:21 37.1 C 86 20 163/100 H BP Pulse Ox 10/11/19 07:25 136/88 99 10/11/19 03:35 123/70 95 10/11/19 02:34 125/83 97 10/11/19 01:36 96 10/11/19 01:09 110/69 98 10/11/19 00:35 99/66 L 97 10/11/19 00:15 116/63 97 10/11/19 00:10 116/60 98 10/11/19 00:00 125/61 99 10/10/19 23:50 120/70 97 10/10/19 23:40 133/70 96 10/10/19 23:30 96 10/10/19 23:20 98/68 L 95 10/10/19 23:15 129/70 98 10/10/19 22:19 125/81 97 10/10/19 20:35 120/82 99 10/10/19 20:32 100 10/10/19 20:28 100 10/10/19 16:06 97 10/10/19 14:21 100 Pain Intensity Left Back: Pain Intensity: 3 Notes Mental Status: alert / awake / arousable and participated in evaluation Nausea / Vomiting: adequately controlled Pain: adequately controlled Airway Patency, RR, SpO2: stable & adequate BP & HR: stable & adequate Hydration State: stable & adequate
[2019-10-11] MEDS: CEFEPIME 2,000 MG in SYRINGE 7.5 ML IV SCH (08:52)
[2019-10-11] MEDS ORDERED: CALCIUM 600MG + VIT D 400 IU TAB PO SCH (09:00)
[2019-10-11] MEDS ORDERED: SERTRALINE HCL 100 MG TABLET PO SCH (09:00)
[2019-10-11] MEDS ORDERED: CONSULT PHARMACY PRN (09:35)
[2019-10-11] MEDS ORDERED: DAPTOmycin 500 MG in SYRINGE 0 ML IV SCH (10:00)
[2019-10-11 10:11] LABS: BUN Creatinine Ratio 10.4 (10-20); Calcium 8.8 mg/dl (8.5-10.1); Creatinine Clr Calc Pharmacy 147.9 ml/min; Est GFR (African American) 129.8; Potassium 3.5 mmol/L (3.5-5.1)
--- NOTE | 2019-10-11 11:42 | Surgery Progress Note ---
Date of Service October 11, 2019 Assessment & Plan (1) Cutaneous abscess of left axilla: POD # 0 s/p incision and drainage of left axillary abscess - afebrile - no leukocytosis - wound culture pending with few gram positive cocci - history of MRSA in past Plan: Will need follow-up in wound clinic for daily packing changes starting tomorrow or Thursday. Would suggest transition to oral bactrim given history of MRSA for total of 10 days Pain management as needed Okay from surgical standpoint for discharge today Continue medical management F/u with Dr. Raygoza in [address] Raygoza has seen patient agrees with above Subjective feeling better but still having some pain at the incision site "different type of pain" no fevers or chills pain controlled with pain medication wants to go home today Physical Exam Constitutional: WD/WN, vitals as above no acute distress Respiratory: normal respiratory effort; no respiratory distress Skin: no rashes, warm and dry Psychiatric: A+Ox3, euthymic affect Results & Data Vital Signs (Past 12 Hours) Vital Signs Temp Pulse Resp BP BP Pulse Ox 10/11/19 11:13 36.8 C 72 18 131/79 10/11/19 07:25 36.5 C 83 16 136/88 99 10/11/19 03:35 36.6 C 69 16 123/70 95 10/11/19 02:34 36.6 C 72 16 125/83 97 10/11/19 01:36 36.6 C 70 16 115/77 96 10/11/19 01:09 36.6 C 76 16 110/69 98 10/11/19 00:35 36.4 C L 75 16 99/66 L 97 10/11/19 00:15 36.2 C L 79 18 116/63 97 10/11/19 00:10 36.3 C L 77 18 116/60 98 10/11/19 00:00 36.3 C L 78 18 125/61 99 10/10/19 23:50 77 16 120/70 97 10/10/19 23:40 36.3 C L 78 18 133/70 96 Laboratory Results 10/11/19 10/11/19 10/10/19 Range/Units 05:53 05:52 16:14 WBC 7.32 (4.8-10.8) K/uL RBC 3.83 L (4.2-5.4) M/uL Hgb 8.4 L (12.0-16.0) g/dL Hct 27.2 L (37-47) % MCV 71.0 L (80-100) fL MCH 21.9 L (25-34) pg MCHC 30.9 L (32-36) g/dL RDW Std Deviation 44.1 (36.4-46.3) fL RDW Coeff of Vane 16.9 H (11.5-14.5) % Plt Count 297 (130-400) K/uL MPV 9.4 (7.4-10.4) fL Immature Gran % (Auto) 0.3 % Neut % (Auto) 56.6 % Lymph % (Auto) 31.3 % Shannon % (Auto) 9.3 % Eos % (Auto) 2.2 % Baso % (Auto) 0.3 % Immature Gran # (Auto) 0.02 (0.00-0.02) K/uL Neut # (Auto) 4.15 (1.4-6.5) K/uL Lymph # (Auto) 2.29 (1.2-3.4) K/uL Shannon # (Auto) 0.68 H (0.11-0.59) K/uL Eos # (Auto) 0.16 (0-0.5) K/uL Baso # (Auto) 0.02 (0-0.2) K/uL Giant Platelets Hypochromasia Present Ovalocytes Sodium 139 (136-145) mmol/L Potassium 3.5 (3.5-5.1) mmol/L Chloride 107 (98-107) mmol/L Carbon Dioxide 28 (21-32) mmol/L Anion Gap 4.0 (3-11) BUN 7 (7-18) mg/dl Creatinine 0.69 (0.6-1.2) mg/dl Est Cr Clr Drug Dosing 147.9 ml/min Est GFR ( Amer) 129.8 Est GFR (Non-Af Amer) 112.0 BUN/Creatinine Ratio 10.4 (10-20) Glucose 91 (70-99) mg/dl Lactate 1.7 (0.4-2.0) mmol/L Calcium 8.8 (8.5-10.1) mg/dl 10/10/19 10/10/19 Range/Units 16:11 16:11 WBC 10.60 (4.8-10.8) K/uL RBC 4.06 L (4.2-5.4) M/uL Hgb 8.9 L (12.0-16.0) g/dL Hct 28.9 L (37-47) % MCV 71.2 L (80-100) fL MCH 21.9 L (25-34) pg MCHC 30.8 L (32-36) g/dL RDW Std Deviation 44.0 (36.4-46.3) fL RDW Coeff of Vane 16.9 H (11.5-14.5) % Plt Count 335 (130-400) K/uL MPV 10.2 (7.4-10.4) fL Immature Gran % (Auto) 0.2 % Neut % (Auto) 67.8 % Lymph % (Auto) 22.4 % Shannon % (Auto) 8.3 % Eos % (Auto) 1.1 % Baso % (Auto) 0.2 % Immature Gran # (Auto) 0.02 (0.00-0.02) K/uL Neut # (Auto) 7.19 H (1.4-6.5) K/uL Lymph # (Auto) 2.37 (1.2-3.4) K/uL Shannon # (Auto) 0.88 H (0.11-0.59) K/uL Eos # (Auto) 0.12 (0-0.5) K/uL Baso # (Auto) 0.02 (0-0.2) K/uL Giant Platelets 1+ Hypochromasia Present Ovalocytes 1+ Sodium 137 (136-145) mmol/L Potassium 3.4 L (3.5-5.1) mmol/L Chloride 104 (98-107) mmol/L Carbon Dioxide 25 (21-32) mmol/L Anion Gap 8.0 (3-11) BUN 7 (7-18) mg/dl Creatinine 0.71 (0.6-1.2) mg/dl Est Cr Clr Drug Dosing 143.8 ml/min Est GFR ( Amer) 127.0 Est GFR (Non-Af Amer) 109.6 BUN/Creatinine Ratio 9.3 L (10-20) Glucose 93 (70-99) mg/dl Lactate (0.4-2.0) mmol/L Calcium 9.0 (8.5-10.1) mg/dl Diagnostic Findings Microbiology 10/10/19 23:00 Gram Stain - Final Axilla,Left
[2019-10-11] MEDS ORDERED: LACTOBACILLUS ACIDOPHILUS (FLORANEX) TAB PO SCH (12:00)
--- NOTE | 2019-10-11 12:29 | Hospitalist Progress Note ---
Date of Service delayed entry date of service note below October 11, 2019 Assessment & Plan (1) Hidradenitis suppurativa of left axilla: s/p I&D of abscess, draining about 30 cc of abscess wound culture: (+ )MRSA blood cultures: pending, follow up afebrile pain significantly improved has received Dalbavancin 3 days prior to admission discharge on Doxycycline 100mg BID x 1 week patient to ff up with wound care clinic in 2 days given instructions of wound care, dressing change ff up with PCP in 1 week (2) Cellulitis: As above (3) Depression: History of anxiety and depression continue current medications History of gastric bypass and history of abdominal hernia repair with mesh with complications following surgery no issues Anemia, Microcytic no active bleeding noted further work up and management as outpatient Disposition d/c home ff up with PCP and Wound care clinic as noted above case and plan of care discussed with patient all questions answered patient is understanding, agreeable and comfortable with the plan of care Admission and Anticipated Discharge Date Admission Date: October 10, 2019 Subjective ff up for hydradenitis suppurativa seen sitting up in bed, comfortable states she feels fine overall minimal discomfort on the surgical site no fever/chills no chest pain, dyspnea, palpitations, dizziness no other symptoms Review of Systems Review of Systems: All systems reviewed & are unremarkable except as noted in HPI & below Physical Exam Physical Exam: General- oriented x 3, not in distress, speaks in sentences with no effort or accessory muscle use Head- atraumatic Eyes- PERRL, EOMI, anicteric ENT- oropharynx clear Neck- supple, no JVD, no adenopathy, no thyromegaly; carotids +2/2, no bruits appreciated Lungs- clear to auscultation bilaterally, no rales/wheezes Heart- normal rate, regular rhythm; no murmur, no gallop, no rub appreciated Left axillary region- heavy dressing in place minimal surrounding erythema, no warmth/tenderness no bleeding, discharge noted Abdomen- normal bowel sounds, nondistended, soft, nontender, no masses or hepatosplenomegaly Extremities- no pretibial edema, no calf tenderness; peripheral pulses intact Neuro- alert, oriented x 3; CN 2-12 grossly intact; motor 5/5 bilaterally;sensation 100% on all extremities; no other gross focal neurologic deficits Skin- warm & dry Results & Data (MN) Vital Signs (Past 12 Hours) Vital Signs Temp Pulse Resp BP BP Pulse Ox 10/11/19 11:13 36.8 C 72 18 131/79 10/11/19 07:25 36.5 C 83 16 136/88 99 10/11/19 03:35 36.6 C 69 16 123/70 95 10/11/19 02:34 36.6 C 72 16 125/83 97 10/11/19 01:36 36.6 C 70 16 115/77 96 10/11/19 01:09 36.6 C 76 16 110/69 98 10/11/19 00:35 36.4 C L 75 16 99/66 L 97 Laboratory Results all noted and reviewed
--- NOTE | 2019-10-13 11:43 | Discharge Summary ---
Date of Service October 13, 2019 Admission HPI Per Admitting Provider She is a 34 years old obese female with significant past medical history of hidradenitis separativa involving mainly left axilla, anxiety/depression, history of respiratory failure following abdominal procedure has been complaining of increasing swelling with discharge from the left axillary wound for some time. A few weeks back she was seen by her primary care doctor and was given ceftriaxone IM followed by oral clindamycin. She was seen in the ER with increasing symptoms and was given 1 dose of Dalvance about 3 days ago. She is back in the ER for a follow-up and was noted to have increasing swelling and redness involving the left axilla. She was advised for admission and intravenous antibiotic to cover other organisms especially Pseudomonas. No fever and/or chills, no significant drainage from the wound, no nausea no vomiting, and no other symptoms. She was afebrile with normal white count and a CAT scan of the axillary region did not show any abscess. She was admitted to the medical floor and was started with intravenous cefepime and a surgical consultation with taking for possible drainage. Admission Exam Per Admitting Provider Physical Exam: Lying in bed comfortably Constitutional: well developed, well nourished, + acute distress (Very anxious), + ill appearing and + obese Eyes: PERRL, conjunctivae normal, anicteric sclerae ENMT: external ear and nose normal, oropharynx normal Neck: trachea midline, no thyromegaly Respiratory: normal respiratory effort Auscultation: lungs clear to auscultation bilaterally Cardiovascular: Rate/Rhythm: regular rate and regular rhythm Heart Sounds: no murmur Gastrointestinal (Abdomen): Inspection/Auscultation: abdomen normal to inspection and + abdomen distended Percussion/Palpation: abdomen soft; abdomen nontender Musculoskeletal: No acute arthritis Skin: Left axillary area-a lump about the size of a tennis ball with in duration and surrounding edema and redness without fluctuation Neurologic: moves all extremities; no focal motor deficits Lymphatic: no cervical or axillary lymphadenopathy Principal Diagnosis LEFT AXILLARY ABSCESS, CELLULITIS Discharge Exam General- oriented x 3, not in distress, speaks in sentences with no effort or accessory muscle use Head- atraumatic Eyes- PERRL, EOMI, anicteric ENT- oropharynx clear Neck- supple, no JVD, no adenopathy, no thyromegaly; carotids +2/2, no bruits appreciated Lungs- clear to auscultation bilaterally, no rales/wheezes Heart- normal rate, regular rhythm; no murmur, no gallop, no rub appreciated Left axillary region- heavy dressing in place minimal surrounding erythema, no warmth/tenderness no bleeding, discharge noted Abdomen- normal bowel sounds, nondistended, soft, nontender, no masses or hepatosplenomegaly Extremities- no pretibial edema, no calf tenderness; peripheral pulses intact Neuro- alert, oriented x 3; CN 2-12 grossly intact; motor 5/5 bilaterally;sensation 100% on all extremities; no other gross focal neurologic deficits Skin- warm & dry Discharge Data Allergies Allergy/AdvReac Type Severity Reaction Status Date / Time amoxicillin [From Augmentin] Allergy Severe Possible Verified 10/13/19 08:22 ARDS clavulanic acid Allergy Severe Possible Verified 10/13/19 08:22 [From Augmentin] ARDS Consultations 10/10/19 18:30 ED Decision to Admit Stat 10/10/19 19:55 Consult General Surgery Routine Procedures Performed Operation Date: 10/10/19 22:20 Actual Procedures p Incision and Drainage Left Axillary Abscess(Left) - Gabriel Raygoza MD Ordered Studies 10/10/19 14:44 CT chest w con Stat FINDINGS: Soft tissues: There is extensive subcutaneous soft tissue induration with overlying dermal thickening seen in the left infra-axillary soft tissues. This extends along the lateral chest wall posterior to the breast. There is phlegmonous change/subcutaneous fluid in this region, which measures approximately 7.5 x 6 x 5 cm in maximum dimension. No organized/drainable fluid collection is seen at this time. Thyroid: Imaged portions of the thyroid gland are normal in size and attenuation. Thoracic aorta: The thoracic aorta is normal in caliber and demonstrates standard 3-vessel arch anatomy. No dissection is seen. Pulmonary vasculature: The pulmonary trunk is normal in caliber. There are no filling defects identified in the central pulmonary vessels to indicate pulmonary embolus. Note that this examination was not protocoled for evaluation of the pulmonary arteries. Heart: The heart is normal in size and without pericardial effusion. Lungs and pleural spaces: The lungs and pleural spaces are clear. The trachea and central airways are patent. Mediastinum: There is no mediastinal lymphadenopathy. Indira: Clear. Axillae: There is no axillary lymphadenopathy. Upper abdomen: The liver is enlarged and steatotic. Cholecystectomy clips are noted. There are changes of Navarro-en-Y gastric bypass surgery. Skeletal structures: No lytic or blastic bony lesions are seen. IMPRESSION: 1. There is significant subcutaneous soft tissue infiltration with overlying dermal thickening seen in the left infraaxillary region consistent with reported history of cellulitis. 2. There is subcutaneous fluid/phlegmonous change in this region as above. No organized/drainable fluid collection is seen at this time. 3. The lungs are clear. 4. Hepatomegaly and hepatic steatosis. 5. Additional findings as above. ACT 112: Negative or not required by law. Hospital Course (1) Hidradenitis suppurativa of left axilla: Left Axillary Abscess s/p I&D of abscess, draining about 30 cc of abscess wound culture: (+ )MRSA blood cultures: pending, follow up afebrile pain significantly improved has received Dalbavancin 3 days prior to admission discharge on Doxycycline 100mg BID x 1 week patient to ff up with wound care clinic in 2 days given instructions of wound care, dressing change ff up with PCP in 1 week (2) Cellulitis: As above (3) Hepatic steatosis: CT chest: hepatic steatosis and and hepatomegaly further evaluation and management as outpatient (4) Depression: History of anxiety and depression continue current medications History of gastric bypass and history of abdominal hernia repair with mesh no issues Anemia, Microcytic no active bleeding noted further work up and management as outpatient Disposition d/c home ff up with PCP and Wound care clinic as noted above case and plan of care discussed with patient all questions answered patient is understanding, agreeable and comfortable with the plan of care Total Time Total Time Spent Total Time Spent (In Minutes): 50 minutes Discharge Plan Discharge Items Patient Disposition: Home - Self-Care Reason For Visit: AXILLARY ABSCESS,HIDRADENITIS SUPPURATIVA Discharge Diagnosis: HYDRADENITIS SUPPURATIVA, AXILLARY CELLULITIS WITH ABSCESS Activity: As commented below Activity Comment: RESUME ACTIVITY GRADUALLY TOLERATED, NO LIFTING Lifting: Wait until after follow-up appointment Bathing Comment: NO BATHING Exercise/Sports: Wait until after follow-up appointment Driving/Machine Use: NO DRIVING UNTIL RE-EVALUATED AND ALLOWED BY PRIMARY CARE PHYSICIAN Non-emergency contact: Primary Care Provider and Surgeon Call non-emergency contact if: you have any medication questions, your symptoms worsen, your pain is not controlled, your pain is worsening, your pain is unusual for you, your pain is concerning for you, you have a fever, your wound has increased redness, your wound has increased drainage and your wound pain has increased Follow-up/Referrals: Neeraj Jorge [Primary Care Provider] - 10/18/19 8:30 am Gabriel Raygoza MD [Physician] - (DR. RAYGOZA OFFICE WILL CALL YOU WITH A FOLLOW UP APPOINTMENT) Diet: Regular and Heart Healthy Addtl Attending Provider Instructions: YOUR NEW MEDICATION IS DOXYCYCLINE 100MG BID X 1 WEEK. TAKE A PROBIOTIC DAILY X 1 MONTH AT LEAST. DRINK PLENTY OF FLUIDS. PER GENERAL SURGERY: KEEP THE DRESSING AND WOUND DRY AT ALL TIMES. KEEP THE PACKING IN PLACE AND FOLLOW UP WITH THE W[facility] OF [facility] TOMORROW OR THURSDAY. PLEASE CALL THEIR OFFICE TODAY FOR AN APPOINTMENT. [phone] YOU MAY CHANGE THE OUTER DRESSING IF WITH DISCHARGE, OR SEEPAGE. CALL YOUR PRIMARY CARE PHYSICIAN OR RETURN TO THE ER IMMEDIATELY IF WITH RECURRING, WORSENING OF SYMPTOMS, INCREASING PAIN, SWELLING, REDNESS ON THE AFFECTED AREA, FEVER/CHILLS, DIARRHEA. FOLLOW UP WITH YOUR PCP IN 1 WEEK. FOLLOW UP WITH THE WOUND CARE CENTER WITHIN 1-2 DAYS NOTED ABOVE. FOLLOW UP WITH DR. RAYGOZA IN 1-2 WEEKS. HIS CONTACT INFORMATION IS OUTLINED ABOVE. Pending Studies at Discharge: Yes Studies:: FINAL RESULTS OF CULTURES FROM DRAINAGE AND BLOOD REPEAT BLOODWORK- CBC AND BMP ON FOLLOW UP WITH YOUR PRIMARY CARE PHYSICIAN. Stand-Alone Forms: [facility] [place], Work/School Release (Inpt), Smoking Cessation Medications and DC Order Prescriptions: Continued acetaminophen [Tylenol Extra Strength] 500 mg Tablet 500 mg PO QID PRN (Reason: Fever) Qty: 0 RF: 0 bumetanide 1 mg Tablet 1 mg PO DIRECTED PRN (Reason: leg swelling) 90 Days Qty: 180 RF: 1 calcium carbonate-vitamin D3 [Calcium 600 + D(3)] 600 mg(1,500mg) -400 unit Tablet 1 tab PO DAILY Qty: 0 RF: 0 potassium chloride 20 mEq Tablet Extended Release 20 meq PO DIRECTED PRN (Reason: leg swelling) Qty: 0 RF: 0 lamotrigine 200 mg tablet 200 mg PO BID RF: 0 bupropion HCl 150 mg tablet sustained-release 12 hr 150 mg PO BID RF: 0 sertraline 100 mg tablet 150 mg PO DAILY RF: 0 hydrocodone-acetaminophen 10-325 mg tablet 1 tab PO QID PRN (Reason: ongoing therapy) RF: 0 alprazolam 0.5 mg tablet 0.25 mg PO DIRECTED PRN (Reason: anxiety/sleep) RF: 0 pantoprazole 40 mg Tablet,Delayed Release (Dr/Ec) 40 mg PO DAILY PRN (Reason: Gi Upset) RF: 0 ferrous sulfate 325 mg (65 mg iron) Tablet 325 mg PO BID RF: 0 guanfacine 1 mg tablet 1 mg PO BID RF: 0 buspirone 15 mg tablet 15 mg PO BID RF: 0 medroxyprogesterone 150 mg/mL syringe 150 mg IM Q90D RF: 0 Vyvanse 40 mg capsule 40 mg PO QAM RF: 0 Flintstones Gummies Tablet,Chewable 1 tab PO BID RF: 0 temazepam 15 mg capsule 15 mg PO DIRECTED PRN (Reason: Sleep) RF: 0 medroxyprogesterone 150 mg/mL syringe 150 mg IM Q90D RF: 0 Discontinued clindamycin HCl 150 mg capsule 150 mg PO QID RF: 0 No Action doxycycline hyclate 100 mg capsule 100 mg PO BID 7 Days Qty: 14 RF: 0 Discharge Orders: Discharge Order (Routine); Ordered 10/11/19 Ordered By: Kyle Sy Admission Data Admit Date/Time: 10/10/19 19:30 Attending Provider: Kyle Sy Admit Provider: Josh Bertrand Primary Care Provider: Neeraj Jorge Other Providers: Josh Bertrand ; Joe Ahuja ; Dea Fournier ; Eitan Perez ; Cindy Carmona ; Jc Cooper ; Teddy Malagon ; Marielena Betancourt ; Jagdish Ontiveros ; Aury Poe ; Jason Mena Jr ; Gabriel Raygoza ; Therese Andrew Other Interventions: Discharge Summary Assessment (RN) Last Done: 10/11/19 13:00 DC Date/Time DO NOT enter until pt leaves facility: 10/11/19 13:34
== END 2019-10-11 13:34 | disposition home or self-care (01) ==
LOC: 3N 14:06 → ED 14:06 → SUATTDRO 19:30 → 3N 20:32

== ENCOUNTER 2024-11-14 17:12 | Inpatient (IN) ==
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
[2024-11-14] MEDS: CLINDAMYCIN HCL 150 MG CAP PO ONE (18:18)
[2024-11-14 18:21] LABS: Hematocrit (blood only) 37.8 % (37.0-47.0); Hemoglobin 11.8 g/dl (12.0-16.0); Mean Corpuscular Hemoglobin 26.4 pg (25.0-34.0); Mean Corpuscular Hgb Conc 31.2 g/dL (32.0-36.0); Mean Corpuscular Volume 84.6 fL (80.0-100.0); Mean Platelet Volume 10.5 fL (9.4-12.4); Platelet Count 284 K/uL (130-400); RDW Coefficient of Variation 14.8 % (11.5-14.5); RDW Standard Deviation 45.7 fL (36.4-46.3); Red Blood Count 4.47 M/uL (4.20-5.40); White Blood Count 27.14 K/ul (4.8-10.8)
[2024-11-14 18:33] LABS: BUN Creatinine Ratio 9.6 (10-20); Calcium 8.9 mg/dl (8.6-10.3); Creatinine Clr Calc Pharmacy 125.7 ml/min; Potassium 3.7 mmol/L (3.5-5.1)
[2024-11-14 18:42] LABS: Basophils # (auto) 0.05 K/uL (0.00-0.20); Basophils % (auto) 0.2 %; Eosinophils # (auto) 0.09 K/uL (0.00-0.50); Eosinophils % (auto) 0.3 %; Immature Granulocytes % (auto) 4.1 %; Lymphocytes # (auto) 1.23 K/uL (1.20-3.40); Lymphocytes % (auto) 4.5 %; Monocytes # (auto) 2.04 K/uL (0.11-0.59); Monocytes % (auto) 7.5 %; Neutrophils # (auto) 22.63 K/uL (1.40-6.50); Neutrophils % (auto) 83.4 %
--- NOTE | 2024-11-14 21:03 | Ultrasound Report ---
EXAM: US venous doppler LE LT CLINICAL HISTORY: DVT. TECHNIQUE: Ultrasound examination of left lower extremity veins was performed in real-time and duplex. One or more of the following were performed- spectral analysis, resistive index, waveform analysis, and pulsed Doppler. COMPARISON: 07/15/2023 FINDINGS: Normal phasic, non-pulsatile, and spontaneous flow is noted in the left common femoral, proximal great saphenous, superficial femoral, deep femoral, popliteal, posterior tibial, anterior tibial and peroneal veins. Visualized veins of the left lower extremity demonstrate normal compressibility and augmentation. No sonographic evidence of acute deep vein thrombosis (DVT) is detected in the visualized veins of the left lower extremity. Compression : All evaluated veins compress fully with applied transducer pressure. Additional Findings: No evidence of intraluminal thrombus. An ill-defined collection was seen in the left distal thigh at the area of interest measuring 3.0 x 2.8 x 2.8 cm. Adjacent edematous changes are seen. A small rounded hypoechoic area with a peripheral echogenic rim seen adjacent to the collection measures 0.3 x 0.4 x 0.3 cm, could be a foreign body. A well-defined cystic lesion in the left popliteal fossa measures 4.1 x 1.1 x 2.8 cm, previously measured 7.2 x 1.7 x 2.9 cm. IMPRESSION: 1. No sonographic evidence of acute DVT was detected in the left common femoral, proximal great saphenous, superficial femoral, deep femoral, popliteal, posterior tibial, anterior tibial, and peroneal veins., at the time of examination. (No interval changes} 2. A 3.0 cm, ill-defined collection was seen in the left distal thigh at the area of interest, associated with adjacent edematous changes and a suspected foreign body, that needs clinical corelation. (Newly developed) 3. A 4.1 cm, left bliss's cyst. Interval new finding. Disclaimer: DVT could be missed early in the disease when the clot burden is minimal. For patients with moderate and high pretest probability of DVT and negative ultrasound, the [employer] clinical guidelines recommend testing with a D-dimer assay or repeat ultrasound in 5-7 days. If symptoms worsen, the Society of [employer] in Ultrasound recommends repeating ultrasound even earlier. Electronically signed by Gray Schumacher 11-14-2024 9:02 PM
[2024-11-14] MEDS ORDERED: VANCOMYCIN CONSULT ACTIVE PRN (21:24)
[2024-11-14] MEDS ORDERED: levoFLOXacin/D5W 500 MG/100 ML BAG IV SCH (21:30)
[2024-11-14] MEDS ORDERED: ACETAMINOPHEN 325 MG TAB PO PRN (22:03)
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
[2024-11-14] MEDS: VANCOMYCIN HCL 2,750 MG in SODIUM CHLORIDE 0.9% 500 ML IV ONE (23:52)
[2024-11-14] MEDS: oxyCODONE/ACETAMINOPHEN 10-325 TAB PO PRN (23:53)
[2024-11-14] MEDS: lamoTRIgine 100 MG TAB PO SCH (23:53)
--- NOTE | 2024-11-15 01:53 | CT Scan Report ---
Exam(s): CT EXTREMITY LEFT LOWER Without Contrast EXAM: CT Left Lower Extremity Without Intravenous Contrast CLINICAL HISTORY: Venous doppler with possible LLE foreign body. TECHNIQUE: Axial computed tomography images of the left lower extremity without intravenous contrast. Automated exposure control was utilized for the study. A dose lowering technique was utilized adhering to the principles of ALARA. COMPARISON: No relevant prior studies available. FINDINGS: Bones/joints: Unremarkable. No acute fracture. No dislocation. Soft tissues: Subcutaneous infiltration at the anterior medial aspect of the left thigh with a focal 2 x 1.7 cm subcutaneous hematoma. No radiopaque foreign body/shrapnel. IMPRESSION: Medial left thigh infiltration with a small hematoma within the subcutaneous fat. No radiopaque foreign body/shrapnel. No fracture or osseous injury. Electronically signed by: Teddy Smith M.D. 11/15/24 01:53 AM
[2024-11-15] MEDS: levoFLOXacin/D5W 750 MG/150 ML BAG IV SCH (03:21)
[2024-11-15] MEDS: LEVOTHYROXINE SODIUM 50 MCG TABLET PO SCH (04:57)
[2024-11-15 07:13] LABS: Hematocrit (blood only) 33.1 % (37.0-47.0); Hemoglobin 10.4 g/dl (12.0-16.0); Mean Corpuscular Hemoglobin 26.5 pg (25.0-34.0); Mean Corpuscular Hgb Conc 31.4 g/dL (32.0-36.0); Mean Corpuscular Volume 84.2 fL (80.0-100.0); Platelet Count 251 K/uL (130-400); RDW Coefficient of Variation 14.9 % (11.5-14.5); RDW Standard Deviation 46.3 fL (36.4-46.3); Red Blood Count 3.93 M/uL (4.20-5.40); White Blood Count 23.43 K/ul (4.8-10.8)
[2024-11-15] MEDS: buPROPion XL 300 MG TABCR PO SCH (07:32)
[2024-11-15] MEDS: lamoTRIgine 100 MG TAB PO SCH (07:32)
[2024-11-15 07:37] LABS: Albumin Globulin Ratio 1.1 (0.9-2); Albumin Level 3.1 gm/dl (3.4-5.0); BUN Creatinine Ratio 12.2 (10-20); Bilirubin,Total 0.7 mg/dl (0.2-1.0); Calcium 8.6 mg/dl (8.6-10.3); Creatinine Clr Calc Pharmacy 141.2 ml/min; Globulin 2.8 gm/dl (2.5-4.0); INR 1.1 (0.9-1.1); Magnesium 1.9 mg/dl (1.7-2.4); Partial Thromboplastin Ratio 1.3; Partial Thromboplastin Time 36 Seconds (21-31); Potassium 3.9 mmol/L (3.5-5.1); Total Protein 5.9 gm/dl (6.0-8.3)
[2024-11-15 07:39] LABS: Basophils # (auto) 0.04 K/uL (0.00-0.20); Basophils % (auto) 0.2 %; Dohle Bodies 1+; Eosinophils # (auto) 0.09 K/uL (0.00-0.50); Eosinophils % (auto) 0.4 %; Immature Granulocytes # (auto) 1.75 K/uL (0.01-0.20); Immature Granulocytes % (auto) 7.5 %; Lymphocytes # (auto) 1.07 K/uL (1.20-3.40); Lymphocytes % (auto) 4.6 %; Monocytes # (auto) 1.77 K/uL (0.11-0.59); Monocytes % (auto) 7.6 %; Neutrophils # (auto) 18.71 K/uL (1.40-6.50); Neutrophils % (auto) 79.7 %; Polychromasia 1+
--- OUTSIDE RECORDS SUMMARY | 2024-11-15 07:44 | External Medical Summary | Summary of Care ---
Author Name Unknown Organization [facility] Address [address] [place] [address] Phone [phone] Care Team Providers Care Can Pusher Name Role Phone Jessica Sahni PA-C Primary Care Provider Reason for Referral * Evaluate & Treat - Unlimited Visits (Within 10 days (routine)) - Pending Review Specialty Diagnoses / Procedures Referred By Contjosafat t Referred To Contact Infectious Diseases / Infectious Disease Diagnoses Nonspecific reaction to cell mediated immunity measurement of gamma interferon antigen response without active tuberculosis Jessica Sahni PA-C [address] [facility] [address] [place] [address] Phone: tel: fax: Referral ID Status Reason Start Date Expiration Date Visits Requested Visits Authorized [id number] Pending Review Specialty Services Required 10/06/2024 [id number] Question Answer Referral Priority Within 10 days (routine) Where should this appointment be scheduled? [facility] What condition is the patient being seen for? All Other Conditions Encounter Details Date Type Department Care Team (Late st Contact Info) Description 10/06/2024 Orders Only [facility], [address] *DO NOT REMOVE THIS DEPARTMENT* JULIUS HOWELL [id number] Request, External Referral Nonspecific reaction to cell mediated immunity measurement of gamma interferon antigen response without active tuberculosis* Allergies Active Allergy Reactions Criticality Noted Date Comments Amoxicillin-Pot Clavulanate High 10/20/19 17 Other reaction(s): Shortness Of Breath documented as of this encounter (statuses as of 10/06/2024) Medications vitamins ( RX) 27-1 MG Tablet Take 1 Tab by mouth daily. Active Acetaminophen 325 MG CAPS Take 1 Tab by mouth as needed. Active calcium-vit D 500mg-200 units per tab 500-200 MG-UNIT per tablet Take 1 Tab by mouth daily. Active bumetanide (BUMEX) 1 MG TabletIndications :as needed Take 1 mg by mouth daily. Indications: as needed Active medroxyPROGESTERo ne, contracep, (DEPO-PROVERA) 150 MG/ML injection Inject 1 mL into a large muscle every 3 months. 1 mL 3 7 Active Elastic Bandages & Supports (MEDICAL COMPRESSION STOCKINGS) MISC 20-30 mmHg, wear while awake 1 Each 5 7 Active busPIRone (BUSPAR) 15 MG Tablet Take 15 mg by mouth 2 times a day. 0 Active Cholecalciferol (VITAMIN D3) 125 MCG (5000 UT) Tablet Take 1 Tab by mouth. Active HYDROcodone-Aceta minophen 10-325 MG per tablet Take 1 tablet by mouth three times a day; ONGOING THERAPY. CERVICAL RADICULITIS, RECURRENT CELLULITIS, ROTATOR CUFF INJ 0 Active lamoTRIgine (LAMICTAL) 200 MG Tablet Take 200 mg by mouth 2 times a day. 0 Active sertraline (ZOLOFT) 100 MG Tablet Take 1&1/2 tablets by mouth daily 0 Active buPROPion extended release, SR, (WELLBUTRIN SR) 150 MG TB12 Take 150 mg by mouth 2 times a day. Active guanFACINE HCl (TENEX) 1 MG Tablet Take 1 mg by mouth 2 times a day. 0 Active pantoprazole (PROTONIX) 40 MG TBEC Take 40 mg by mouth daily. 0 Active Zinc 50 MG Capsule Take 50 mg by mouth 2 times a day. Active Ascorbic Acid (VITAMIN C) 500 MG chewable tablet Take 500 mg by mouth 2 times a day. Active NATURAL SUPPLEMENT Take 1 Tab by mouth 2 times a day. l-argine Active Lysine HCl 500 MG CAPS Take 500 mg by mouth 2 times a day. Active Potassium Chloride ER 20 MEQ TBCR Take 10 mEq by mouth daily. Active Humira Pen 40 MG/0.4ML Subcutaneous Pen-injector Kit On hold per pt 0 Active Clindamycin HCl 300 MG Oral Capsule TAKE ONE CAPSULE BY MOUTH THREE TIMES DAILY FOR 10 DAYS 0 Active Clindamycin Phosphate 1 % External Lotion apply as spot treatment to affected areas in the morning 0 Active Clorazepate Dipotassium 7.5 MG Oral Tablet (TRANXENE) Take 7.5 mg by mouth 3 times a day. 0 Active Diclofenac Sodium 1 % Transdermal Gel apply 4 grams 4 times a day up to 32 grams daily 0 Active documented as of this encounter (statuses as of 10/06/2024) Active Problems Problem Noted Date Diagnosed Date Encounter for adjustment and management of vascular access device 04/24/2020 Hidradenitis suppurativa 04/05/2020 Morbid obesity with BMI of 50.0-59.9, adult 07/24 Leg edema 08/08/2016 Polyhydramnios in third trimester 07/18/2016 Overview (07/18/2016): 07/18/16 @ 36w3d TAMAR 30cm Supervision of high-risk 03/26/2016 Obesity in , antepartum 03/26/2016 History of hernia repair 03/26/2016 Anxiety and depression 03/26/2016 Medication exposure during first trimester of pr egnancy 03/26/2016 Headache in 03/26/2016 H/O gastric bypass 01/04/2016 H/O hernia repair 01/04/2016 Overview (06/30/2016): Mesh in place, ventral hernia repair in 2013 From umbilicus to midway below Obesity, Class III, BMI 40-49.9 (morbid obesity) 01/04/2016 Overview (07/15/2016): Early glucola Baseline preeclamptic labs and 24hr urine protein-- WNL Growth u/s every 6-8 weeks after 24 weeks NSTs twice weekly after 32 weeks Anesthesia consult Delivery by 40 weeks Growth US 07/08/2016: EFW 2806 grams (74%). Encounter for supervision of normal first in first trimester 01/04/2016 Overview (06/30/2016): 06/30/2016 Tdap Vaccine administered per clinic protocol. Pt given VIS(vaccine information sheet) Aury Smith RN Patient received flu vaccine. 06/30/2016 Aury Smith RN documented as of this encounter (statuses as of 10/06/2024) Resolved Problems Problem Noted Date Diagnosed Date Resolved Date ARDS (adult respiratory distress syndrome) 08/08/2016 08/12/2016 Acute respiratory failure 08/08/2016 ADVANCE DIRECTIVE INFORMATION 04/29/2016 06/27/2024 Overview (08/26/2005): No, Advance Directive brochure offered , patient declined. documented as of this encounter (statuses as of 10/06/2024) Immunizations Name Administration Dates Next Due Seasonal Influenza, Quadrivalent, No Preserve, I M 06/30/2016 TDAP (age 10 and older)(Boostrix) 06/30/2016 documented as of this encounter Social History Tobacco Use Types Packs/Day Years Used Date Smoking Tobacco: Never Smokeless Tobacco: Never Alcohol Use Standard Drinks/Week Comments No 0 (1 standard drink = 0.6 oz pur e alcohol) denies during 2015 Utilities Answer Date Recorded Do you have trouble paying y our heating, water, or electric bill? (Adult - for ages 18 years and over) Not on file 02/09/2024 Is your family able to pay t he heat, water, or electric bill? (Household - for ages 0-17 years) Not on file 02/09/2024 Does your family have access to good internet? (Household - for ages 0-17 years) Not on file 02/09/2024 Social Connections Answer Date Recorded How often do you feel lonely or isolated from those around you? 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 Answer Date of Assessment Author No 08/08/2016 12:19 PM Mainor Hernandez RN * Are you blind or do you have serious difficulty seeing, even when wearing glasses? Answer Date of Assessment Author No 08/08/2016 12:19 PM Mainor Hernandez RN * Do you have serious difficulty walking or climbing stairs? (5 years old or older) Answer Date of Assessment Author No 08/08/2016 12:19 PM Mainor Hernandez RN * Do you have difficulty dressing or bathing? (5 years old or older) Answer Date of Assessment Author No 08/08/2016 12:19 PM Mainor Hernandez RN * Because of a physical, mental, or emotional condition, do you have difficulty doing errands alone such as visiting a doctor’s office or shopping? (15 years old or older) Answer Date of Assessment Author No 08/08/2016 12:19 PM Mainor Hernandez RN documented as of this encounter Mental Status * Because of a physical, mental, or emotional condition, do you have serious difficulty concentrating, remembering, or making decisions? (5 years old or older) Answer Entry Date Author No 08/08/2016 12:19 PM Mainor Hernandez RN documented in this encounter Plan of Treatment Scheduled Referrals Name Type Priority Associated Diagnoses Orde r Schedule INFECTIOUS DISEASE REFERRAL OP Referral Within 10 days (routine) Nonspecific reaction to cell mediated immunity measurement of gamma interferon antigen response without active tuberculosis Ordered: 10/06/2024 Health Maintenance Due Date Last Done Comments Lipid Panel 1983 COVID-19 Vaccine (#1) 02/18/1988 HIV Screening 1998 Hepatitis C Screening 2001 Hepatitis B Vaccine (1 of 3 - 19+ 3-dose series) 2002 Pneumococcal Vaccine: Pediatrics (0 to 5 Years) and At-Risk Patients (6 to 18 Years and 19+ Years) (1 of 2 - PCV) 2002 HPV/Co-Test 2013 Depression Monitoring 09/10/2017 09/10/2016 Cervical Cancer Screening 01/03/2019 Pap Smear 01/03/2019 01/04/2016 Mammogram 2023 Diabetes Screening 04/05/2023 04/05/2020, 1 09/12/2016, 08/13/2016, Additional history exists Influenza Vaccine (FLU shot) (#1) 2024 06/30/2016 DTap/Tdap Vaccines (2 - Td or Tdap) 06/30/2026 06/30/2016 HPV (Gardasil) Vaccine Aged Out No lo nger eligible based on patient's age to complete this topic MENINGOCOCCAL (MENACTRA/MENVEO) Aged Out No longer eligible based on patient's age to complete this topic documented as of this encounter Medical Devices Not on filedocumented as of this encounter Visit Diagnoses Diagnosis Nonspecific reaction to cell mediated immunity measurement of gamma interferon antigen response without active tuberculosis- Primary documented in this encounter Advance Directives * Full Code (Latest Code Status on File) Date Activated Date Inactivated Comments 08/08/2016 7:04 PM 08/13/2016 3:28 PM This order reflects the patients wishes and were consensually agreed upon. Question Answer Comments Discussion of Advance Directives occurred with: Patient Does the patient have a Living Will? No Does the patient have Health Care Power of Attor aden? No Care Teams Can Pusher Relationship Specialty Start Date End Date Jessica Sahni PA-C [address] [place] [address] PCP - General Physician Clinician Oncology 07/01/24 documented as of this encounter
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
--- OUTSIDE RECORDS SUMMARY | 2024-11-15 07:44 | External Medical Summary | Continuity of Care Document ---
Author Name Unknown Organization [address] [place] [id number] Care Team Providers Care Assistant City Attorney Name Role Phone Jessica Sahni Primary Care Physician [phone] 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(Discharge Diagnosis) - 08/26/24 Prediabetes(Discharge Diagnosis) - 08/26/24 Ankylosing spondylitis of lumbar region(Discharge Diagnosis) - 08/26/24 Discharge Disposition: Home or Self Care Attending Physician: AUTUMN Sahni Kimberly A Allergies, Adverse Reactions, Alerts Substance Criticality Severity Reaction Reaction Severity Status Augmentin severe reaction Acti ve Immunizations Given and Recorded Vaccine Date Status [...] acetaminophen-oxycodone 325 mg-10 mg oral tablet Start: 08/26/24 3:51:00 PM EST, 1 tab, PO, qid, Disp# 120 tab, Refills: 0, not to exceed 6 tablets/day, Note to Pharmacy: ongoing tx; PDMP queried;, PRN: as needed for pain, Pharmacy: [id number] Start Date: 08/26/24 Status: Ordered Adderall 30 mg oral tablet Start: 08/26/24 3:51:00 PM EST, 30 mg =, PO, bid, Disp# 60 tab, Refills: 0, Note to Pharmacy: ongoingtherapy; PMDP queried, Pharmacy: [facility] Start Date: 08/26/24 Stop Date: 09/25/24 Status: Ordered betamethasone-clotrimazole 0.05%-1% topical cream Start: 01/19/24 5:33:00 PM EDT, 1 appl, topical, bid, Disp# 15 g, Refills: 0, Pharmacy: [facility] Start Date: 01/19/24 Status: Ordered Bumex 2 mg oral tablet Start: 03/13/23 11:31:00 AM EDT, 1 tab, PO, bid, Disp# 180 tab, Refills: 3, Pharmacy: [facility] Start Date: 03/13/23 Stop Date: 03/07/24 Status: Ordered buPROPion 300 mg/24 hours (XL) oral tablet, extended release Start: 04/26/24 10:08:00 AM EDT, 1 tab, PO, Daily, Disp# 90 tab, Refills: 3, Pharmacy: [facility] Start Date: 04/26/24 Status: Ordered clindamycin 1% topical lotion Start: 03/17/24 7:17:00 PM EDT, 1 appl, topical, bid, Disp# 60 mL, Refills: 5, to AA in groin, on abdomen and under arms, Pharmacy: [facility] Start Date: 03/17/24 Status: Ordered clindamycin 300 mg oral capsule Start: 08/10/23 2:19:00 PM EST, 1 cap, PO, bid, Disp# 20 cap, Refills: 2, Pharmacy: [facility] Start Date: 08/10/23 Stop Date: 09/09/23 Status: Ordered clorazepate 7.5 mg oral tablet Start: 05/09/24 8:27:00 PM EDT, 1 tab, PO, tid, Disp# 90 tab, Refills: 2, Pharmacy: [facility] Start Date: 05/09/24 Status: Ordered doxycycline Start: 07/15/24 11:02:00 AM EST Start Date: 07/15/24 Status: Ordered ferrous sulfate 325 mg (65 mg elemental iron) oral delayed release tablet Start: 10/01/22 2:59:00 PM EST, 1 tab, PO, Daily Start Date: 10/01/22 Status: Ordered FLUoxetine 20 mg oral capsule Start: 08/26/24 3:54:00 PM EST, See Instructions, Disp# 90 cap, Refills: 3, 2 cap in AM, 1 cap in PM,Pharmacy: [facility] Start Date: 08/26/24 Status: Ordered Humira Pen (citrate free) 40 mg/0.4 mL subQ kit Start: 04/04/24 11:31:00 AM EDT, See Instructions, subQ, Disp# 4 each, Refills: 10, 40mg sq weekly, Note to Pharmacy: 4 each = 4 pens, Pharmacy: [facility] Start Date: 04/04/24 Status: Ordered lamoTRIgine 200 mg oral tablet Start: 04/11/24 5:04:00 PM EDT, 1 tab, PO, bid, Disp# 180 tab, Refills: 3, Pharmacy: [facility] Start Date: 04/11/24 Status: Ordered levothyroxine 50 mcg (0.05 mg) oral tablet Start: 08/04/24 10:01:00 PM EST, 1 tab, PO, Daily, Disp# 90 tab, Refills: 0, Pharmacy: [facility] Start Date: 08/04/24 Status: Ordered medroxyPROGESTERone IM 150 mg/ml Start: 08/04/23 7:08:00 AM EST, See Instructions, Disp# 1 mL, Refills: 4, inject 1 ml into a large muscle every 3 months, Pharmacy: [facility] Start Date: 08/04/23 Status: Ordered metOLazone 2.5 mg oral tablet Start: 10/05/23 1:12:00 PM EST, 2 tab, PO, Daily, Disp# 60 tab, Refills: 5, Pharmacy: [facility] Start Date: 10/05/23 Status: Ordered multivitamin Start: 10/01/22 2:59:00 PM EST, 1 tab, PO, Daily Start Date: 10/01/22 Status: Ordered Potassium Chloride (Shf-Dyxl-Xin M20) 20 mEq oral tablet, extended release Start: 08/04/23 7:08:00 AM EST, 1 tab, PO, bid, Disp# 60 tab, Refills: 6, Pharmacy: [facility] Start Date: 08/04/23 Status: Ordered turmeric Start: 10/01/22 2:59:00 PM EST, bid Start Date: 10/01/22 Status: Ordered Mental Status 08/26/24 Barriers to Learning one year None evide nt Mandatory Health Literacy Documentation Yes Health Literacy Communication Barriers N ever Primary Language Kazakh Problem List Condition Confirmation Course Effective Dates Status H ealth Status Informant Ankylosing spondylitis of lumbar region Confirmed Active Anxiety Confirmed Active ADHD (attention deficit hyperactivity disorder) Confirmed Active Breast lump in female Confirmed Active Edema leg Confirmed Active History of pulmonary hypertension Confirmed Active Hidradenitis suppurativa Confirmed Active Hypothyroidism, adult Confirmed Active Narcolepsy Confirmed Active Knee pain Confirmed Active 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 Diagnosis Diagnosis Type Effective Dates Health Status Clinical Service Informant History of gastric bypass Discharge Diagnosis 08/26/24 Non-Specified Hyperglycemia Discharge Diagnosis 08/26/24 Non-Specified 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 Discharge Diagnosis 08/26/24 Non-Specified Prediabetes Discharge Diagnosis 08/26/24 Non-Specified Body mass index [BMI] 50.0-59.9, adult Discharge Diagnosis 08/26/24 Non-Specified Ankylosing spondylitis of lumbar region Discharge Diagnosis 08/26/24 Non-Specified Procedures Procedure Date Related Diagnosis Body Site Status Shave biopsy 1 12/22/22 Completed delivery Complet ed 1Left Posterior shoulder Vital Signs Most recent to oldest [Reference Range]: 1 Height 161.5 cm (08/26/24 3:35 PM) Patient Weight 145.5 kg (08/26/24 3:35 PM) Body Mass Index 55.79 kg/m2 (08/26/24 3:35 PM) Heart Rate 77 bpm (08/26/24 3:35 PM) Respiratory Rate 18 br/min (08/26/24 3:35 PM) Blood Pressure 128/88mmHg (08/26/24 3:35 PM) Cuff Pulse Pressure 40 mmHg (08/26/24 3:35 PM) Social History Social History Type Response Smoking Status Never smoked cigaret darleen Sex Female Sex Representation Female (finding) Patient Care team information Care Team Personnel Name: AUTUMN Sahni, Jessica Sarah Position: Physician Asst Exmpt - Family Med Member Role: Primary Care Provider Address: [facility] [address] [address] Name: Chandni Evangelista Erin Position: Pharmacist Member Role: Pharmacy - Lifetime Care Team Related Persons Name: MIKI CASILLAS Name: NILE JOSEPH
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
--- OUTSIDE RECORDS SUMMARY | 2024-11-15 07:44 | External Medical Summary | Continuity of Care Document ---
Author Name Unknown Organization [facility] [address] [facility] [address] [place] [phone] Care Team Providers Care Head Housekeeper Name Role Phone Jessica Sahni Primary Care Physician [phone] [facility] [id number] Date(s): 10/04/24 - 10/04/24 [facility] [address] [facility] 207 [facility] [address] [address] [phone] Encounter Diagnosis Bariatric surgery status(Final) - Hyperglycemia, unspecified(Final) - Discharge Disposition: Home or Self Care Attending Physician: AUTUMN Sahni Kimberly A Referring Physician: AUTUMN Sahni Kimberly A Encounter Type: [...] cap in AM, 1 cap in PM,Pharmacy: [id number] Start Date: 08/26/24 Status: Ordered Quantity: 90.0 Unit: cap Repeat number: 4 Humira Pen (citrate free) 40 mg/0.4 mL subQ kit Start: 04/04/24 11:31:00 AM EDT, See Instructions, subQ, Disp# 4 each, Refills: 10, 40mg sq weekly, Note to Pharmacy: 4 each = 4 pens, Pharmacy: [facility] Start Date: 04/04/24 Status: Ordered Quantity: 4.0 Unit: each Repeat number: 11 Indication: Hidradenitis suppurativa lamoTRIgine 200 mg oral tablet Start: 04/11/24 5:04:00 PM EDT, 1 tab, PO, bid, Disp# 180 tab, Refills: 3, Pharmacy: [id number] Start Date: 04/11/24 Status: Ordered Quantity: 180.0 Unit: tab Repeat number: 4 levothyroxine 50 mcg (0.05 mg) oral tablet Start: 08/04/24 10:01:00 PM EST, 1 tab, PO, Daily, Disp# 90 tab, Refills: 0, Pharmacy: [facility] #118 Start Date: 08/04/24 Status: Ordered Quantity: [...] Daily, Disp# 60 tab, Refills: 5, Pharmacy: [facility] Start Date: 10/05/23 Status: Ordered Quantity: 60.0 Unit: tab Repeat number: 1 multivitamin Start: 10/01/22 2:59:00 PM EST, 1 tab, PO, Daily Start Date: 10/01/22 Status: Ordered Repeat number: 1 Potassium Chloride (Svq-Gnik-Wto M20) 20 mEq oral tablet, extended release Start: 08/04/23 7:08:00 AM EST, 1 tab, PO, bid, Disp# 60 tab, Refills: 6, Pharmacy: [id number] Start Date: 08/04/23 Status: Ordered Quantity: 60.0 Unit: tab Repeat number: 1 turmeric Start: 10/01/22 2:59:00 PM EST, bid Start Date: 10/01/22 Status: Ordered Repeat number: 1 Problem List Condition Confirmation Course Effective Dates [...] Active 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 Procedures Procedure Date Related Diagnosis Body Site Status Shave biopsy 1 12/22/22 Completed delivery Complet ed 1Left Posterior shoulder Results Laboratory List Name Date Basic Metabolic Panel (BASIC METAB PANEL ) 10/04/24 Ferritin (FERRITIN) 10/04/24 Hemoglobin A1C (HEMOGLOBIN, A1C) 10/04/24 Hepatic Function Panel (HEPATIC FUNCT PA TANGELA) 10/04/24 Iron Level (IRON) 10/04/24 Lipid Profile (LIPOPROTEINS) 10/04/24 Magnesium Level (MAGNESIUM) 10/04/24 Thyroid Stimulating Hormone (TSH) 5 Most recent to oldest [Reference Range]: 1 eGFR CKD-EPI [>60 mL/min/1.73 m2] >90 mL /min/1.73 m2 1 (10/04/24 7:49 AM) Estimated Average Glucose 114 mg/dL 2 (10/04/24 7:49 AM) Non-HDL 108 mg/dL 3 (10/04/24 7:49 AM) Estimated CrCl 151.01 mL/min (10/04/24 12:07 PM) Anion Gap [5-14 mmol/L] 0 mmol/L *LOW* (10/04/24 7:49 AM) Alb [3.5-5.0 g/dL] 3.7 g/dL (10/04/24 7:49 AM) Alk Phos [38-126 unit/L] 94 unit/L (10/04/24 7:49 AM) ALT [<35 unit/L] 21 unit/L (10/04/24 7:49 AM) AST [15-46 unit/L] 34 unit/L (10/04/24 7:49 AM) BUN [7-20 mg/dL] 13 mg/dL (10/04/24 7:49 AM) Ca [8.4-10.2 mg/dL] 8.4 mg/dL (10/04/24 7:49 AM) Chol/HDL 4 (10/04/24 7:49 AM) Chol [125-200 mg/dL] 150 mg/dL (10/04/24 7:49 AM) Cl- [96-107 mmol/L] 102 mmol/L (10/04/24 7:49 AM) HCO3 [22-30 mmol/L] 33 mmol/L *HI* (10/04/24 7:49 AM) Cret [0.60-1.00 mg/dL] 0.70 mg/dL (10/04/24 7:49 AM) D Bili [0.0-0.6 mg/dL] 0.3 mg/dL (10/04/24 7:49 AM) Iron [37-145 ug/dL] 49 ug/dL (10/04/24 7:49 AM) Ferritin [6.2-137.0 ng/mL] 18.1 ng/mL 4 (10/04/24 7:49 AM) HbA1c [4.0-6.0 %] 5.6 % (10/04/24 7:49 AM) Glu [74-106 mg/dL] 124 mg/dL *HI* (10/04/24 7:49 AM) HDL [>35 mg/dL] 42 mg/dL (10/04/24 7:49 AM) K [3.5-5.1 mmol/L] 4.0 mmol/L (10/04/24 7:49 AM) LDL Chol, Calculated [50-130 mg/dL] 63 m g/dL (10/04/24 7:49 AM) Mg [1.6-2.3 mg/dL] 2.0 mg/dL 5 (10/04/24 7:49 AM) Na [137-145 mmol/L] 135 mmol/L *LOW* (10/04/24 7:49 AM) T Bili [0.2-1.3 mg/dL] 0.4 mg/dL (10/04/24 7:49 AM) Prot [6.3-8.2 g/dL] 6.7 g/dL 6 (10/04/24 7:49 AM) TG [<200 mg/dL] 224 mg/dL *HI* (10/04/24 7:49 AM) TSH [0.47-4.68 uIU/mL] 2.37 uIU/mL 7 (10/04/24 7:49 AM) 1Result Comment: Testing Performed By: Dept of Pathology [facility] [place], [address], [place], [place] [address] 2Result Comment: Testing Performed By: Dept of Pathology [facility] [place], [address] [facility] [place] [address] 3Result Comment: Testing Performed By: Dept of Pathology [facility] [place], [address], [place], [place] [address] 4Result Comment: Testing Performed By: Dept of Pathology [facility] [place], [address], [place], [place] [address] 5Result Comment: Testing Performed By: Dept of Pathology [facility] [place], [address], [place], [place] [address] 6Result Comment: Testing Performed By: Dept of Pathology [facility] [place], [address], [place], [place] [address] 7Result Comment: Testing Performed By: Dept of Pathology [facility] [place], [address], [place], [place] [address] Social History Social History Type Response Smoking Status Never smoked cigaret darleen Sex Female Sex Representation Female (finding) Patient Care team information Care Team Personnel Name: AUTUMN Sahni, Jessica Sarah Position: Physician Asst Exkathyt - Family Med Member Role: Primary Care Provider Address: [address] [place] [address] Telecom: [phone] Name: Chandni Evangelista Erin Position: Pharmacist Member Role: Pharmacy - Lifetime Care Team Related Persons Name: MIKI CASILLAS Name: NILE JOSEPH Insurance Providers Guarantor name: DORA JOSEPH Health Plan Information #: 1 Payer: [facility] [employer] Member Number: [id number] Policy Number: NA Group Number: [id number] Health Plan Information #: 2 Payer: [facility] [employer]ICA[employer] Member Number: [id number] Policy Number: NA Group Number: [id number]
--- OUTSIDE RECORDS SUMMARY | 2024-11-15 07:45 | External Medical Summary | Continuity of Care Document ---
Author Name Unknown Organization [facility] [address] [place] [phone] Care Team Providers Care Graduate Student Instructor Name Role Phone Jessica Sahni Primary Care Physician [phone] Encounter [facility] [id number] Date(s): 07/25/24 - 07/25/24 [facility] 0 [facility] [place] [address] 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 GOAL: Maintain stability. PLAN: Cont current monitoring. Recheck appt in 4-6 weeks week Continue current dosing of Fluoxetine Will adjust mood stabilizer at next visit if needed 2. 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 -Is short of breath but has a compilation of factors that affect her breathing -Is aware that she is unable to resume her Humira until evaluated by infectious disease. DATA: Labs reviewed. GOAL: Maintain stability. PLAN: Cont current monitoring. Patient will reach out to infectious disease later today to discuss next treatment options. Immunizations Given and Recorded Vaccine Date Status [...] acetaminophen-oxycodone 325 mg-10 mg oral tablet Start: 07/04/24 9:12:00 PM EST, 1 tab, PO, qid, Disp# 120 tab, Refills: 0, not to exceed 6 tablets/day, Note to Pharmacy: ongoing tx; PDMP queried;, PRN: as needed for pain, Pharmacy: [id number] Start Date: 07/04/24 Status: Ordered Adderall 30 mg oral tablet Start: 07/04/24 9:12:00 PM EST, 30 mg =, PO, bid, Disp# 60 tab, Refills: 0, Note to Pharmacy: ongoing therapy; PMDP queried, Pharmacy: [facility] Start Date: 07/04/24 Stop Date: 08/03/24 Status: Ordered betamethasone-clotrimazole 0.05%-1% topical cream Start: 01/19/24 5:33:00 PM EDT, 1 appl, topical, bid, Disp# 15 g, Refills: 0, Pharmacy: [facility] Start Date: 01/19/24 Status: Ordered Bumex 2 mg oral tablet Start: 03/13/23 11:31:00 AM EDT, 1 tab, PO, bid, Disp# 180 tab, Refills: 3, Pharmacy: [facility] Start Date: 03/13/23 Stop Date: 03/07/24 Status: Ordered buPROPion 300 mg/24 hours (XL) oral tablet, extended release Start: 04/26/24 10:08:00 AM EDT, 1 tab, PO, Daily, Disp# 90 tab, Refills: 3, Pharmacy: [facility] Start Date: 04/26/24 Status: Ordered busPIRone Start: 04/04/21 11:33:00 AM EDT, 7.5 mg =, PO, qhs Start Date: 04/04/21 Status: Ordered clindamycin 1% topical lotion Start: 03/17/24 7:17:00 PM EDT, 1 appl, topical, bid, Disp# 60 mL, Refills: 5, to AA in groin, on abdomen and under arms, Pharmacy: [facility] Start Date: 03/17/24 Status: Ordered clindamycin 300 mg oral capsule Start: 08/10/23 2:19:00 PM EST, 1 cap, PO, bid, Disp# 20 cap, Refills: 2, Pharmacy: [facility] Start Date: 08/10/23 Stop Date: 09/09/23 Status: Ordered clorazepate 7.5 mg oral tablet Start: 05/09/24 8:27:00 PM EDT, 1 tab, PO, tid, Disp# 90 tab, Refills: 2, Pharmacy: [facility] Start Date: 05/09/24 Status: Ordered doxycycline Start: 07/15/24 11:02:00 AM EST Start Date: 07/15/24 Status: Ordered ferrous sulfate 325 mg (65 mg elemental iron) oral delayed release tablet Start: 10/01/22 2:59:00 PM EST, 1 tab, PO, Daily Start Date: 10/01/22 Status: Ordered FLUoxetine 20 mg oral capsule Start: 07/15/24 11:42:00 AM EST, See Instructions, Disp# 60 cap, Refills: 3, 1 capsule daily x 1 week, then increase to 2 capsules daily, Pharmacy: [facility] Start Date: 07/15/24 Status: Ordered Humira Pen (citrate free) 40 mg/0.4 mL subQ kit Start: 04/04/24 11:31:00 AM EDT, See Instructions, subQ, Disp# 4 each, Refills: 10, 40mg sq weekly, Note to Pharmacy: 4 each = 4 pens, Pharmacy: [facility] Start Date: 04/04/24 Status: Ordered lamoTRIgine 200 mg oral tablet Start: 04/11/24 5:04:00 PM EDT, 1 tab, PO, bid, Disp# 180 tab, Refills: 3, Pharmacy: [facility] Start Date: 04/11/24 Status: Ordered levothyroxine 50 mcg (0.05 mg) oral tablet Start: 08/10/23 2:19:00 PM EST, 1 tab, PO, Daily, Disp# 90 tab, Refills: 1, Pharmacy: [facility] Start Date: 08/10/23 Stop Date: 02/06/24 Status: Ordered Medrol Dosepak 4 mg oral tablet Start: 06/14/24 9:49:00 AM EDT, See Instructions, Disp# 21 tab, Take as directed on package labeling for 6 days., Pharmacy: [facility] Start Date: 06/14/24 Stop Date: 06/20/24 Status: Ordered medroxyPROGESTERone IM 150 mg/ml Start: 08/04/23 7:08:00 AM EST, See Instructions, Disp# 1 mL, Refills: 4, inject 1 ml into a large muscle every 3 months, Pharmacy: [facility] Start Date: 08/04/23 Status: Ordered metOLazone 2.5 mg oral tablet Start: 10/05/23 1:12:00 PM EST, 2 tab, PO, Daily, Disp# 60 tab, Refills: 5, Pharmacy: [facility] Start Date: 10/05/23 Status: Ordered multivitamin Start: 10/01/22 2:59:00 PM EST, 1 tab, PO, Daily Start Date: 10/01/22 Status: Ordered Potassium Chloride (Zcc-Tcyy-Yrw M20) 20 mEq oral tablet, extended release Start: 08/04/23 7:08:00 AM EST, 1 tab, PO, bid, Disp# 60 tab, Refills: 6, Pharmacy: [facility] Start Date: 08/04/23 Status: Ordered predniSONE Start: 07/15/24 11:02:00 AM EST Start Date: 07/15/24 Status: Ordered sertraline 100 mg oral tablet Start: 04/11/24 5:03:00 PM EDT, 2 tab, PO, Daily, Disp# 180 tab, Refills: 3, Pharmacy: [facility] Start Date: 04/11/24 Status: Ordered turmeric Start: 10/01/22 2:59:00 PM EST, bid Start Date: 10/01/22 Status: Ordered Mental Status 07/25/24 Barriers to Learning one year None evide nt Mandatory Health Literacy Documentation Yes Health Literacy Communication Barriers N ever Primary Language Mexican Problem List Condition Confirmation Course Effective Dates [...] Effective Dates Health Status Clinical Service Informant Positive QuantiFERON-TB Gold test Discharge Diagnosis 07/25/24 Non-Specified 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 Chief Complaint follow up for med change History of Present Illness Patient is 39yo female presenting via Telehealth for recheck of her depression/anxiety. Was seen about 2 weeks ago and was transitioned from Sertraline to Fluoxetine. She has noticed a difference in her mood with the change. Will be done with the Sertraline this week and plans on increasing to Fluoxetine 40mg daily at that time. Did respond much better when confronted with a very toxic environment over the holiday. She does have an appt scheduled with a therapist later this month. Review of Systems ROS per HPI Physical [...] No rash visible on exposed skin areas. [place]/normal coloration. No diaphoresis appreciated. Neuro: Alert & oriented x 3. Logical thought process. Psych: Normal affect & mood Assessment/Plan 1. 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 GOAL: Maintain stability. PLAN: Cont current monitoring. Recheck appt in 4-6 weeks week Continue current dosing of Fluoxetine Will adjust mood stabilizer at next visit if needed 2. 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 -Is short of breath but has a compilation of factors that affect her breathing -Is aware that she is unable to resume her Humira until evaluated by infectious disease. DATA: Labs reviewed. GOAL: Maintain stability. PLAN: Cont current monitoring. Patient will reach out to infectious disease later today to discuss next treatment options. 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 Edema leg Hidradenitis suppurativa History of pulmonary hypertension Hypothyroidism, adult Knee pain Narcolepsy Procedure/Surgical History •Shave biopsy| Service Date: 12/22/2022• [...] tablet, extended release), 1 tab, PO, Daily busPIRone, 7.5 mg, PO, qhs clindamycin(clindamycin 300 mg oral capsule), 300 mg= 1 cap, PO, bid, 2 refills clindamycin topical(clindamycin 1% topical lotion), [...] levothyroxine(levothyroxine 50 mcg (0.05 mg) oral tablet), 50 mcg= 1 tab, PO, Daily, 1 refills medroxyPROGESTERone(medroxyPROGESTERone IM 150 mg/ml), See Instructions methylPREDNISolone(Medrol Dosepak 4 mg oral tablet), See Instructions metOLazone(metOLazone 2.5 mg oral tablet), 2 tab, PO, Daily multivitamin, 1 tab, PO, Daily potassium chloride(Potassium Chloride (Urb-Xobs-Nfl M20) 20 mEq oral tablet, extended release), 1 tab, PO, bid predniSONE sertraline(sertraline 100 mg oral tablet), 2 tab, PO, Daily, 3 refills turmeric, bid Allergies Augmentin severe reaction Social History Smoking Status Never smoked cigarettes Alcohol - Denies Alcohol Use Employment/School - No Risk Exercise - Does not exercise Home/Environment - No Risk Nutrition/Health - Medium Risk Sexual - No Sexual Activity Substance Abuse - Denies Substance Abuse Tobacco - Denies Tobacco Use Immunizations Vaccine Date Status tetanus/diphtheria/pertuss, acel (Tdap) [...] next year) OverDue Adult Influenza Vaccine due 02/21/24 and every 1 year Due Adult COVID-19 Vaccination due 07/25/24 Unknown Frequency Adult Folic Acid Supplementation due 07/25/24 and every 3 year Adult Social Determinants of Health Screening due 07/25/24 Unknown Frequency Breast Cancer Screening due 07/25/24 Unknown Frequency Cervical Cancer Screening due 07/25/24 Unknown Frequency Hepatitis C Screening due 07/25/24 One-time only Pneumococcal Vaccine Adults and Adolescents with Chronic Illness due 07/25/24 One-time only Shingles Vaccine due 07/25/24 One-time only Due In Future Body Mass Index not due until 07/16/25 and every 366 day Satisfied (in the past 1 year) Satisfied Body Mass Index on 07/15/24. Satisfied by JUDY Montelongo [place] Depression Follow Up Plan on 07/25/24. Satisfied by SHERMAN Brown [place] Lipid Screening on 06/14/24. Satisfied by Contributor[employer]system, [employer] Electronic Signature on File Electronically Reviewed/Signed by: Jessica Sahni PA-C Author Signature Dt/Tm:07/25/2024 01:43 PM Department [facility] [place] Patient Care team information Care Team Personnel Name: AUTUMN Sahni, Jessica Sarah Position: Physician Asst Ext - Family Med Member Role: Primary Care Provider Address: [address] [place] [address] Name: Chandni Evangelista Erin Position: Pharmacist Member Role: Pharmacy - Lifetime Care Team Related Persons Name: MIKI CASILLAS Name: NILE JOSEPH"
--- OUTSIDE RECORDS SUMMARY | 2024-11-15 07:45 | External Medical Summary | Continuity of Care Document ---
Author Name Unknown Organization [address] [place] [phone] Care Team Providers Care Link Trainer Name Role Phone Jessica Sahni Primary Care Physician [phone] Encounter [facility] [id number] Date(s): 07/15/24 - 07/15/24 [facility] 0 [facility] 207 [facility] [address] [id number] [phone] Encounter Diagnosis Body mass index [BMI] 50.0-59.9, adult(Discharge Diagnosis) - 07/15/24 Discharge Disposition: Home or Self Care Attending [...] queried;, PRN: as needed for pain, Pharmacy: [id number] Start Date: 07/04/24 Status: Ordered Adderall 30 mg oral tablet Start: 07/04/24 9:12:00 PM EST, 30 mg =, PO, bid, Disp# 60 tab, Refills: 0, Note to Pharmacy: ongoing therapy; PMDP queried, Pharmacy: [id number] Start Date: 07/04/24 Stop Date: 08/03/24 Status: Ordered betamethasone-clotrimazole 0.05%-1% topical cream Start: 01/19/24 5:33:00 PM EDT, 1 appl, topical, bid, Disp# 15 g, Refills: 0, Pharmacy: [id number] Start Date: 01/19/24 Status: Ordered Bumex 2 mg oral tablet Start: 03/13/23 11:31:00 AM EDT, 1 tab, PO, bid, Disp# 180 tab, Refills: 3, Pharmacy: [id number] Start Date: 03/13/23 Stop Date: 03/07/24 Status: Ordered buPROPion 300 mg/24 hours (XL) oral tablet, extended release Start: 04/26/24 10:08:00 AM EDT, 1 tab, PO, Daily, Disp# 90 tab, Refills: 3, Pharmacy: [facility] Start Date: 04/26/24 Status: Ordered busPIRone Start: 04/04/21 11:33:00 AM EDT, 7.5 mg =, PO, qhs Start Date: 04/04/21 Status: Ordered clindamycin 1% topical lotion Start: 03/17/24 7:17:00 PM EDT, 1 appl, topical, bid, Disp# 60 mL, Refills: 5, to AA in groin, on abdomen and under arms, Pharmacy: [id number] Start Date: 03/17/24 Status: Ordered clindamycin 300 mg oral capsule Start: 08/10/23 2:19:00 PM EST, 1 cap, PO, bid, Disp# 20 cap, Refills: 2, Pharmacy: [id number] Start Date: 08/10/23 Stop Date: 09/09/23 Status: Ordered clorazepate 7.5 mg oral tablet Start: 05/09/24 8:27:00 PM EDT, 1 tab, PO, tid, Disp# 90 tab, Refills: 2, Pharmacy: [facility] Start Date: 05/09/24 [...] then increase to 2 capsules daily, Pharmacy: [facility] Start Date: 07/15/24 Status: Ordered Humira Pen (citrate free) 40 mg/0.4 mL subQ kit Start: 04/04/24 11:31:00 AM EDT, See Instructions, subQ, Disp# 4 each, Refills: 10, 40mg sq weekly, Note to Pharmacy: 4 each = 4 pens, Pharmacy: [facility] Start Date: 04/04/24 Status: Ordered lamoTRIgine 200 mg oral tablet Start: 04/11/24 5:04:00 PM EDT, 1 tab, PO, bid, Disp# 180 tab, Refills: 3, Pharmacy: [id number] Start Date: 04/11/24 Status: Ordered levothyroxine 50 mcg (0.05 mg) oral tablet Start: 08/10/23 2:19:00 PM EST, 1 tab, PO, Daily, Disp# 90 tab, Refills: 1, Pharmacy: [facility] Start Date: 08/10/23 Stop Date: 02/06/24 Status: Ordered Medrol Dosepak 4 mg oral tablet Start: 06/14/24 9:49:00 AM EDT, See Instructions, Disp# 21 tab, Take as directed on package labeling for 6 days., Pharmacy: [id number] Start Date: 06/14/24 Stop Date: 06/20/24 Status: Ordered medroxyPROGESTERone IM 150 mg/ml Start: 08/04/23 7:08:00 AM EST, See Instructions, Disp# 1 mL, Refills: 4, inject 1 ml into a large muscle every 3 months, Pharmacy: [facility] Start Date: 08/04/23 Status: Ordered metOLazone 2.5 mg oral tablet Start: 10/05/23 1:12:00 PM EST, 2 tab, PO, Daily, Disp# 60 tab, Refills: 5, Pharmacy: [facility] Start Date: 10/05/23 Status: Ordered multivitamin Start: 10/01/22 2:59:00 PM EST, 1 tab, PO, Daily Start Date: 10/01/22 Status: Ordered Potassium Chloride (Ctc-Rczc-Ddc M20) 20 mEq oral tablet, extended release Start: 08/04/23 7:08:00 AM EST, 1 tab, PO, bid, Disp# 60 tab, Refills: 6, Pharmacy: [facility] Start Date: 08/04/23 Status: Ordered predniSONE Start: 07/15/24 11:02:00 AM EST Start Date: 07/15/24 Status: Ordered sertraline 100 mg oral tablet Start: 04/11/24 5:03:00 PM EDT, 2 tab, PO, Daily, Disp# 180 tab, Refills: 3, Pharmacy: [facility] Start Date: 04/11/24 Status: Ordered turmeric Start: 10/01/22 2:59:00 PM EST, bid Start Date: 10/01/22 Status: Ordered Mental Status 07/15/24 Barriers to Learning one year None evide nt Mandatory Health Literacy Documentation Yes Health Literacy Communication Barriers N ever Primary Language Macanese Problem List Condition Confirmation Course Effective Dates [...] Dates Health Status Cl inical Service Informant Body mass index [BMI] 50.0-59.9, adult Discharge Diagnosis 07/15/24 Non-Specified Procedures Procedure Date Related Diagnosis Body Site Status Shave biopsy 1 12/22/22 Completed delivery Complet ed 1Left Posterior shoulder Vital Signs Most recent to oldest [Reference Range]: 1 Height 161.6 cm (07/15/24 11:08 AM) Patient Weight 143.9 kg (07/15/24 11:08 AM) Body Mass Index 55.1 kg/m2 (07/15/24 11:08 AM) Temperature [36.5-37.9 DegC] 36.7 DegC (07/15/24 11:08 AM) Heart Rate 88 bpm (07/15/24 11:08 AM) Respiratory Rate 18 br/min (07/15/24 11:08 AM) Blood Pressure 144/96mmHg (07/15/24 11:08 AM) Cuff Pulse Pressure 48 mmHg (07/15/24 11:08 AM) Social History Social History Type Response Smoking Status Never smoked cigaret darleen Sex Female Sex Representation Female (finding) Patient Care team information Care Team Personnel Name: AUTUMN Sahni, Jessica Sarah Position: Physician Asst Exmpt - Family Med Member Role: Primary Care Provider Address: [address] [place] [id number] [place] Name: Chandni Evangelista Erin Position: Pharmacist Member Role: Pharmacy - Lifetime Care Team Related Persons Name: MIKI CASILLAS Name: NILE JOSEPH
[2024-11-15] MEDS: DEXTROAMPHETAMINE/AMPHETAMINE IR 10 MG TAB PO SCH (08:27)
[2024-11-15 09:14] LABS: Estimated Average Glucose 126 mg/dl
[2024-11-15] MEDS: VANCOMYCIN HCL 1,500 MG in SODIUM CHLORIDE 0.9% 500 ML IV SCH (10:46)
--- NOTE | 2024-11-15 11:24 | Pharmacy Report ---
Pharmacy PK ABX Note - Date of Service November 15, 2024 - Assessment and Plan Assessment * 39 year old F receiving levofloxacin and vancomycin for treatment of cellulitis of the left thigh. * Pertinent PMH: prior MRSA infection, hidradenitis suppurativa (immune compromised state due to treatment with weekly Humira), ARDS possibly secondary to penicillin reaction, history of non healing surgical wounds, and morbid obesity. * Patient with leukocytosis (WBC 27k on admit) and afebrile Day # 2 of antimicrobial therapy. Plan Vancomycin * Loading dose: 2750 mg IV x 1 * Maintenance dose: 1500 mg IV every 12 hours * Regimen is predicted to achieve target AUC/DAKOTA of 400-600 mg/L.hr * Random level ordered for: 11/16/24 at 1000 Pharmacy will continue to follow and will adjust dose/frequency as necessary. Thank you. Pharmacy has transitioned to AUC monitoring for vancomycin. AUC/DAKOTA is the preferred PK/PD target and is associated with decreased risk of nephrotoxicity compared to traditional trough targets.
[2024-11-15] MEDS: diazePAM 5 MG TABLET PO PRN (13:45)
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
[2024-11-15] MEDS: POTASSIUM CHLORIDE CRTAB 20 MEQ TABCR PO SCH (20:29)
[2024-11-15] MEDS ORDERED: busPIRone 7.5 MG TAB PO SCH (21:00)
[2024-11-15] MEDS ORDERED: SERTRALINE HCL 100 MG TABLET PO SCH (21:00)
[2024-11-16 06:26] LABS: Hematocrit (blood only) 32.4 % (37.0-47.0); Hemoglobin 10.1 g/dl (12.0-16.0); Mean Corpuscular Hemoglobin 26.3 pg (25.0-34.0); Mean Corpuscular Hgb Conc 31.2 g/dL (32.0-36.0); Mean Corpuscular Volume 84.4 fL (80.0-100.0); Mean Platelet Volume 10.4 fL (9.4-12.4); Platelet Count 242 K/uL (130-400); RDW Coefficient of Variation 15.4 % (11.5-14.5); RDW Standard Deviation 46.8 fL (36.4-46.3); Red Blood Count 3.84 M/uL (4.20-5.40); White Blood Count 17.36 K/ul (4.8-10.8)
[2024-11-16 06:51] LABS: BUN Creatinine Ratio 11.7 (10-20); Bilirubin,Total 0.6 mg/dl (0.2-1.0); Calcium 8.7 mg/dl (8.6-10.3); Creatinine Clr Calc Pharmacy 135.7 ml/min; Globulin 3.1 gm/dl (2.5-4.0); Total Protein 6.1 gm/dl (6.0-8.3)
[2024-11-16 06:52] LABS: Basophils # (auto) 0.05 K/uL (0.00-0.20); Basophils % (auto) 0.3 %; Eosinophils # (auto) 0.17 K/uL (0.00-0.50); Immature Granulocytes # (auto) 1.25 K/uL (0.01-0.20); Immature Granulocytes % (auto) 7.2 %; Lymphocytes # (auto) 1.24 K/uL (1.20-3.40); Lymphocytes % (auto) 7.1 %; Monocytes # (auto) 1.01 K/uL (0.11-0.59); Monocytes % (auto) 5.8 %; Neutrophils # (auto) 13.64 K/uL (1.40-6.50); Neutrophils % (auto) 78.6 %
[2024-11-16] MEDS: metOLazone 5 MG TABLET PO SCH (08:54)
[2024-11-16] MEDS: BUMETANIDE 1 MG TAB PO SCH (08:55)
[2024-11-16] MEDS: FLUoxetine HCL 20 MG CAP PO SCH (08:56)
[2024-11-16] MEDS ORDERED: buPROPion XL 300 MG TABCR PO SCH (09:00)
[2024-11-16] MEDS: VANCOMYCIN LEVEL ONE (12:27)
[2024-11-16] MEDS: VANCOMYCIN HCL 1,750 MG in SODIUM CHLORIDE 0.9% 500 ML IV SCH (12:27)
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
--- NOTE | 2024-11-16 15:05 | Pharmacy Report ---
Pharmacy PK ABX Note - Date of Service November 16, 2024 - Assessment and Plan Assessment 11/16: Day #3 vancomycin * Patient still with leukocytosis though improved from admit (17K today) and remains afebrile. * Vanco level drawn today was 7.2mcg/mL which extrapolates to an AUC below the goal range. * The vancomycin has been increased to 1750mg iv q 12 hours. 11/15: * 39 year old F receiving levofloxacin and vancomycin for treatment of cellulitis of the left thigh. * Pertinent PMH: prior MRSA infection, hidradenitis suppurativa (immune compromised state due to treatment with weekly Humira), ARDS possibly secondary to penicillin reaction, history of non healing surgical wounds, and morbid obesity. * Patient with leukocytosis (WBC 27k on admit) and afebrile Day # 2 of antimicrobial therapy. Plan Vancomycin * Vancomycin level drawn this morning was 7.2mcg/mL which extrapolates to an AUC of ~387. * Maintenance dose increased to: 1750 mg IV every 12 hours * Regimen is predicted to achieve target AUC/DAKOTA of 400-600 mg/L.hr * Random level will be ordered in the next few days or as clinically warranted. Pharmacy will continue to follow and will adjust dose/frequency as necessary. Thank you. Pharmacy has transitioned to AUC monitoring for vancomycin. AUC/DAKOTA is the preferred PK/PD target and is associated with decreased risk of nephrotoxicity compared to traditional trough targets.
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
[2024-11-16] MEDS: CHLORASEPTIC (PHENOL) 1.4% SOLN 180 ML BTL MT PRN (18:39)
[2024-11-16] MEDS: NYSTATIN SUSP 500,000 U/5 ML UDC PO SCH (20:00)
[2024-11-17 06:21] LABS: Hematocrit (blood only) 34.1 % (37.0-47.0); Hemoglobin 10.8 g/dl (12.0-16.0); Mean Corpuscular Hgb Conc 31.7 g/dL (32.0-36.0); Mean Corpuscular Volume 82.2 fL (80.0-100.0); Mean Platelet Volume 10.6 fL (9.4-12.4); Platelet Count 306 K/uL (130-400); RDW Coefficient of Variation 15.5 % (11.5-14.5); RDW Standard Deviation 46.6 fL (36.4-46.3); Red Blood Count 4.15 M/uL (4.20-5.40); White Blood Count 14.49 K/ul (4.8-10.8)
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
[2024-11-17] MEDS ORDERED: Nursing to Pharmacy Communication SCH (09:15)
--- NOTE | 2024-11-17 09:40 | Surgery Progress Note ---
Date of Service November 17, 2024 Assessment & Plan (1) Cellulitis of left thigh: Plan: Her CT images and results were personally viewed and interpreted by myself She has mainly cellulitis of her entire left thigh without any appreciable drainable collection With regards to the 2 cm hematoma seen on CT, I think going after this for drainage would not be beneficial to the patient Her white blood cell count continues to trend downward and she has been afebrile No plans for any surgical intervention at this time Will follow Admission and Anticipated Discharge Date Admission Date: November 14, 2024 Subjective Patient seen and examined. No acute events overnight. Afebrile. States the blister on the skin did open up yesterday and drained some clear fluid. Review of Systems Constitutional: no fever and no chills Respiratory: no cough and no dyspnea Cardiovascular: no chest pain and no dyspnea on exertion Gastrointestinal: no abdominal pain, no nausea and no vomiting Integumentary: + wounds and + erythema Psychiatric: no behavioral changes and no depression Hematologic / Lymphatic: no easy bleeding and no easy bruising Physical Exam Constitutional: WD/WN, vitals as above Respiratory: normal respiratory effort, lungs clear to auscultation Cardiovascular: RRR, no murmur, no edema Gastrointestinal (Abdomen): normal bowel sounds, soft, nontender, no hepatosplenomegaly Skin: no rashes, warm and dry Cellulitis of the left thigh with small skin opening on the anterior medial side, serous fluid present, no fluctuance, mild tenderness to palpation Psychiatric: A+Ox3, euthymic affect Results & Data Vital Signs (Past 12 Hours) Vital Signs Temp Pulse Resp BP Pulse Ox O2 Del Method 11/17/24 07:59 Room Air 11/17/24 07:15 36.9 C 95 H 18 119/76 94 Room Air PG Care Time/CCT Total # of Minutes Spent Total Time Spent with Patient: Total time spent is greater than 50% in coordination of care (as documented) at patient's floor/unit and/or counseling patient: Coding Level of Care Code 21987 SUB INP/OBS CARE 09/17MIN Diagnoses Cellulitis of left thigh L03.116
--- NOTE | 2024-11-17 12:32 | Electrocardiogram Report ---
Test Reason : Blood Pressure : */* mmHG Vent. Rate : 102 BPM Atrial Rate : 102 BPM P-R Int : 124 ms QRS Dur : 92 ms QT Int : 408 ms P-R-T Axes : 58 70 1 degrees QTcB Int : 531 ms Sinus tachycardia Nonspecific ST abnormality Prolonged QT Abnormal ECG When compared with ECG of 15-Jul-2023 21:33, QT has lengthened Confirmed by Puma Kimbrough ([id number]) on 11/17/2024 12:30:18 PM Referred By: REFERRED SELF Confirmed By: Puma Kimbrough
[2024-11-17] MEDS ORDERED: DEXTROAMPHETAMINE/AMPHETAMINE IR 10 MG TAB PO SCH (15:00)
[2024-11-17] MEDS: DEXTROAMPHETAMINE/AMPHETAMINE IR 10 MG TAB PO SCH (15:58)
[2024-11-18] MEDS: MoRPHine SULFATE 2 MG/ML CARP IV STA (04:06)
[2024-11-18 06:17] LABS: Hematocrit (blood only) 32.1 % (37.0-47.0); Hemoglobin 10.5 g/dl (12.0-16.0); Mean Corpuscular Hemoglobin 26.4 pg (25.0-34.0); Mean Corpuscular Hgb Conc 32.7 g/dL (32.0-36.0); Mean Corpuscular Volume 80.7 fL (80.0-100.0); Mean Platelet Volume 10.6 fL (9.4-12.4); Platelet Count 310 K/uL (130-400); RDW Coefficient of Variation 15.4 % (11.5-14.5); RDW Standard Deviation 45.4 fL (36.4-46.3); Red Blood Count 3.98 M/uL (4.20-5.40); White Blood Count 12.03 K/ul (4.8-10.8)
[2024-11-18 06:34] LABS: Creatinine Clr Calc Pharmacy 83.6 ml/min
--- NOTE | 2024-11-18 09:52 | Surgery Progress Note ---
Date of Service November 18, 2024 Assessment & Plan (1) Cellulitis of left thigh: Plan: Her white blood cell count continues to downtrend and she has been afebrile No plans for any incision and drainage Will consult wound care for help with controlling the serous fluid coming out of her wound Surgery will sign off at this time, please call with any questions or concerns Admission and Anticipated Discharge Date Admission Date: November 14, 2024 Subjective Patient seen and examined. Still with pain in her left thigh. There is a fair amount of drainage from the opening on her anterior lateral left thigh. Afebrile. Review of Systems Constitutional: no fever and no chills Respiratory: no cough and no dyspnea Cardiovascular: no chest pain and no dyspnea on exertion Gastrointestinal: no abdominal pain, no nausea and no vomiting Integumentary: + wounds and + erythema Psychiatric: no behavioral changes and no depression Hematologic / Lymphatic: no easy bleeding and no easy bruising Physical Exam Constitutional: WD/WN, vitals as above Respiratory: normal respiratory effort, lungs clear to auscultation Cardiovascular: RRR, no murmur, no edema Gastrointestinal (Abdomen): normal bowel sounds, soft, nontender, no hepatosplenomegaly Skin: no rashes, warm and dry Cellulitis of the left thigh with small skin opening on the anterior medial side, serous fluid present, no fluctuance, mild tenderness to palpation Psychiatric: A+Ox3, euthymic affect Results & Data Vital Signs (Past 12 Hours) Vital Signs Temp Pulse Resp BP Pulse Ox O2 Del Method 11/18/24 09:00 98 H 18 123/76 11/18/24 07:40 36.4 C L 100 H 19 128/80 97 Room Air PG Care Time/CCT Total # of Minutes Spent Total Time Spent with Patient: Total time spent is greater than 50% in coordination of care (as documented) at patient's floor/unit and/or counseling patient: Coding Level of Care Code 27462 SUB INP/OBS CARE 09/17MIN Diagnoses Cellulitis of left thigh L03.116
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
--- NOTE | 2024-11-18 12:08 | Pharmacy Report ---
Pharmacy PK ABX Note - Date of Service November 18, 2024 - Assessment and Plan Assessment 11/18: * SCr increased to 1.25 this morning, random level 14.8 mcg/mL * Predicts current dosing will be above target AUC/DAKOTA and with JOHN will adjust dose down today 11/16: Day #3 vancomycin * Patient still with leukocytosis though improved from admit (17K today) and remains afebrile. * Vanco level drawn today was 7.2mcg/mL which extrapolates to an AUC below the goal range. * The vancomycin has been increased to 1750mg iv q 12 hours. 11/15: * 39 year old F receiving levofloxacin and vancomycin for treatment of cellulitis of the left thigh. * Pertinent PMH: prior MRSA infection, hidradenitis suppurativa (immune compromised state due to treatment with weekly Humira), ARDS possibly secondary to penicillin reaction, history of non healing surgical wounds, and morbid obesity. * Patient with leukocytosis (WBC 27k on admit) and afebrile Day # 2 of antimicrobial therapy. Plan Vancomycin * Vancomycin level drawn this morning was 14.8mcg/mL * Maintenance dose decreased to: 1250 mg IV every 12 hours * Regimen is predicted to achieve target AUC/DAKOTA of 400-600 mg/L.hr * Random level will be ordered in the next few days or as clinically warranted. Pharmacy will continue to follow and will adjust dose/frequency as necessary. Thank you. Pharmacy has transitioned to AUC monitoring for vancomycin. AUC/DAKOTA is the preferred PK/PD target and is associated with decreased risk of nephrotoxicity compared to traditional trough targets.
[2024-11-18] MEDS: HYDROmorphone INJ 0.5 MG/0.5 ML SYR IV PRN (12:44)
[2024-11-18] MEDS: VANCOMYCIN HCL 1,250 MG in SODIUM CHLORIDE 0.9% 250 ML IV SCH (13:04)
[2024-11-18 13:09] LABS: Calcium 8.2 mg/dl (8.6-10.3); Potassium 3.7 mmol/L (3.5-5.1)
[2024-11-18 13:56] LABS: BUN Creatinine Ratio 9.6 (10-20)
[2024-11-18] MEDS: VANCOMYCIN LEVEL ONE (22:26)
[2024-11-19] MEDS: HYDROmorphone INJ 0.5 MG/0.5 ML SYR IV STA (00:03)
[2024-11-19 06:15] LABS: Hematocrit (blood only) 34.5 % (37.0-47.0); Hemoglobin 11.2 g/dl (12.0-16.0); Mean Corpuscular Hemoglobin 25.8 pg (25.0-34.0); Mean Corpuscular Hgb Conc 32.5 g/dL (32.0-36.0); Mean Corpuscular Volume 79.5 fL (80.0-100.0); Mean Platelet Volume 10.2 fL (9.4-12.4); Nucleated RBC # (auto) 0.02 K/uL (0.00-0.12); Nucleated RBC % (auto) 0.2 %; Platelet Count 338 K/uL (130-400); RDW Coefficient of Variation 15.4 % (11.5-14.5); Red Blood Count 4.34 M/uL (4.20-5.40); White Blood Count 8.56 K/ul (4.8-10.8)
[2024-11-19 06:38] LABS: BUN Creatinine Ratio 10.8 (10-20); Calcium 8.3 mg/dl (8.6-10.3); Creatinine Clr Calc Pharmacy 102.4 ml/min; Potassium 2.7 mmol/L (3.5-5.1)
[2024-11-19 10:01] LABS: Potassium 2.7 mmol/L (3.5-5.1)
[2024-11-19] MEDS: POTASSIUM CHLORIDE CRTAB 20 MEQ TABCR PO STA (10:26)
[2024-11-19] MEDS: MICONAZOLE NITRATE PV SCH (13:12)
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
[2024-11-19] MEDS: POTASSIUM CHLORIDE CRTAB 20 MEQ TABCR PO ONE (15:56)
[2024-11-19 18:01] LABS: Magnesium 2.2 mg/dl (1.7-2.4)
[2024-11-20 08:08] LABS: Hematocrit (blood only) 37.8 % (37.0-47.0); Hemoglobin 11.9 g/dl (12.0-16.0); Mean Corpuscular Hemoglobin 25.7 pg (25.0-34.0); Mean Corpuscular Hgb Conc 31.5 g/dL (32.0-36.0); Mean Corpuscular Volume 81.6 fL (80.0-100.0); Nucleated RBC # (auto) 0.04 K/uL (0.00-0.12); Nucleated RBC % (auto) 0.4 %; Platelet Count 413 K/uL (130-400); RDW Coefficient of Variation 15.9 % (11.5-14.5); RDW Standard Deviation 47.2 fL (36.4-46.3); Red Blood Count 4.63 M/uL (4.20-5.40); White Blood Count 9.12 K/ul (4.8-10.8)
[2024-11-20 08:23] LABS: BUN Creatinine Ratio 14.7 (10-20); Magnesium 2.4 mg/dl (1.7-2.4); Potassium 3.6 mmol/L (3.5-5.1)
[2024-11-20 10:55] LABS: Ferritin 242.4 ng/ml (8-388)
[2024-11-20] MEDS: MEROPENEM 2,000 MG in SODIUM CHLORIDE 0.9% 60 ML IV SCH (11:02)
--- NOTE | 2024-11-20 11:54 | Pharmacy Report ---
Pharmacy PK ABX Note - Date of Service November 20, 2024 - Assessment and Plan Assessment 11/20: * Discussed w Dr. Millard this AM - improvement has been slow/minimal. Broadening therapy, and consulting ID * SCr decreasing back towards baseline * Vanco level of 12.5 mcg/mL today associated with a subtherapeutic AUC of 354 mg/L.hr * Will increase vancomycin dose. Anticipated AUC with new dose is 527 mg/L.hr 11/18: * SCr increased to 1.25 this morning, random level 14.8 mcg/mL * Predicts current dosing will be above target AUC/DAKOTA and with JOHN will adjust dose down today 11/16: Day #3 vancomycin * Patient still with leukocytosis though improved from admit (17K today) and remains afebrile. * Vanco level drawn today was 7.2mcg/mL which extrapolates to an AUC below the goal range. * The vancomycin has been increased to 1750mg iv q 12 hours. 11/15: * 39 year old F receiving levofloxacin and vancomycin for treatment of cellulitis of the left thigh. * Pertinent PMH: prior MRSA infection, hidradenitis suppurativa (immune compromised state due to treatment with weekly Humira), ARDS possibly secondary to penicillin reaction, history of non healing surgical wounds, and morbid obesity. * Patient with leukocytosis (WBC 27k on admit) and afebrile Day # 2 of antimicrobial therapy. Plan Vancomycin * Increase vancomycin to 1250 mg IV every 8 hours * Target AUC/DAKOTA of 400-600 mg/L.hr * Trough level in 48 hours Pharmacy will continue to follow and will adjust dose/frequency as necessary. Thank you. Pharmacy has transitioned to AUC monitoring for vancomycin. AUC/DAKOTA is the preferred PK/PD target and is associated with decreased risk of nephrotoxicity compared to traditional trough targets.
--- NOTE | 2024-11-20 14:04 | Electrocardiogram Report ---
Test Reason : Blood Pressure : */* mmHG Vent. Rate : 84 BPM Atrial Rate : 84 BPM P-R Int : 136 ms QRS Dur : 98 ms QT Int : 472 ms P-R-T Axes : 63 90 14 degrees QTcB Int : 557 ms Normal sinus rhythm Rightward axis Prolonged QT Abnormal ECG When compared with ECG of 17-Nov-2024 11:10, T wave inversion now evident in Anterior leads Confirmed by Glory Perrin (Meri) on 11/20/2024 2:03:55 PM Referred By: REFERRED SELF Confirmed By: Glory Perrin
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
[2024-11-20] MEDS: NYSTATIN POWDER 15GM BTL EXT PRN (15:34)
[2024-11-20] MEDS: VANCOMYCIN HCL 1,250 MG in SODIUM CHLORIDE 0.9% 250 ML IV SCH (21:07)
[2024-11-21 06:23] LABS: Hematocrit (blood only) 36.1 % (37.0-47.0); Hemoglobin 11.3 g/dl (12.0-16.0); Mean Corpuscular Hemoglobin 25.5 pg (25.0-34.0); Mean Corpuscular Hgb Conc 31.3 g/dL (32.0-36.0); Mean Corpuscular Volume 81.5 fL (80.0-100.0); Mean Platelet Volume 9.7 fL (9.4-12.4); Nucleated RBC # (auto) 0.06 K/uL (0.00-0.12); Nucleated RBC % (auto) 0.6 %; Platelet Count 408 K/uL (130-400); RDW Coefficient of Variation 15.8 % (11.5-14.5); Red Blood Count 4.43 M/uL (4.20-5.40); White Blood Count 10.38 K/ul (4.8-10.8)
[2024-11-21 06:58] LABS: BUN Creatinine Ratio 15.1 (10-20); Calcium 8.6 mg/dl (8.6-10.3); Creatinine Clr Calc Pharmacy 98.6 ml/min; Potassium 3.4 mmol/L (3.5-5.1)
[2024-11-21] MEDS: POTASSIUM CHLORIDE 10 MEQ TABCR PO STA (09:49)
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
[2024-11-22 06:32] LABS: Hematocrit (blood only) 36.1 % (37.0-47.0); Hemoglobin 11.6 g/dl (12.0-16.0); Mean Corpuscular Hemoglobin 26.1 pg (25.0-34.0); Mean Corpuscular Hgb Conc 32.1 g/dL (32.0-36.0); Mean Corpuscular Volume 81.3 fL (80.0-100.0); Mean Platelet Volume 9.5 fL (9.4-12.4); Nucleated RBC # (auto) 0.06 K/uL (0.00-0.12); Nucleated RBC % (auto) 0.5 %; Platelet Count 394 K/uL (130-400); RDW Coefficient of Variation 15.9 % (11.5-14.5); RDW Standard Deviation 46.7 fL (36.4-46.3); Red Blood Count 4.44 M/uL (4.20-5.40); White Blood Count 12.77 K/ul (4.8-10.8)
[2024-11-22 07:13] LABS: BUN Creatinine Ratio 16.1 (10-20); Calcium 8.9 mg/dl (8.6-10.3); Creatinine Clr Calc Pharmacy 120.1 ml/min; Potassium 3.3 mmol/L (3.5-5.1)
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
[2024-11-22 09:52] LABS: Magnesium 2.4 mg/dl (1.7-2.4)
[2024-11-22] MEDS: FAMOTIDINE 10 MG TABLET PO SCH (10:03)
[2024-11-22 10:21] LABS: Basophils # (auto) 0.05 K/uL (0.00-0.20); Basophils % (auto) 0.4 %; Eosinophils # (auto) 0.15 K/uL (0.00-0.50); Eosinophils % (auto) 1.2 %; Immature Granulocytes # (auto) 0.68 K/uL (0.01-0.20); Immature Granulocytes % (auto) 5.3 %; Lymphocytes # (auto) 2.91 K/uL (1.20-3.40); Lymphocytes % (auto) 22.6 %; Monocytes # (auto) 0.63 K/uL (0.11-0.59); Monocytes % (auto) 4.9 %; Neutrophils # (auto) 8.47 K/uL (1.40-6.50); Neutrophils % (auto) 65.6 %
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
[2024-11-22] MEDS ORDERED: VANCOMYCIN LEVEL ONE (11:30)
[2024-11-22] MEDS: oxyCODONE/ACETAMINOPHEN 10-325 TAB PO PRN (11:41)
--- NOTE | 2024-11-22 13:18 | XRay Report ---
XR chest 1V portable HISTORY: 39 years-old Female f/u prior skin testing ?TB screening for TB. COMPARISON: 07/15/2024 TECHNIQUE: AP view the chest FINDINGS: Cardiac mediastinal and hilar silhouettes are within normal limits. Eventration of the right hemidiap hragm. No pneumothorax, pleural effusion or airspace consolidation. Degenerative changes of the shoul ders and spine. IMPRESSION: No acute process. ACT 112: Negative or not required by law. The above report was generated using voice recognition software. It may contain grammatical, syntax o r spelling errors. Electronically signed by: Rashi Hogue M.D. 11/22/2024 1:16 PM
[2024-11-23 06:26] LABS: Basophils # (auto) 0.05 K/uL (0.00-0.20); Basophils % (auto) 0.4 %; Eosinophils # (auto) 0.17 K/uL (0.00-0.50); Eosinophils % (auto) 1.4 %; Hematocrit (blood only) 37.2 % (37.0-47.0); Hemoglobin 11.9 g/dl (12.0-16.0); Immature Granulocytes % (auto) 2.5 %; Lymphocytes # (auto) 2.66 K/uL (1.20-3.40); Lymphocytes % (auto) 21.9 %; Mean Corpuscular Hemoglobin 26.2 pg (25.0-34.0); Mean Corpuscular Volume 81.9 fL (80.0-100.0); Mean Platelet Volume 9.5 fL (9.4-12.4); Monocytes # (auto) 0.52 K/uL (0.11-0.59); Monocytes % (auto) 4.3 %; Neutrophils # (auto) 8.42 K/uL (1.40-6.50); Neutrophils % (auto) 69.5 %; Nucleated RBC # (auto) 0.02 K/uL (0.00-0.12); Nucleated RBC % (auto) 0.2 %; Platelet Count 401 K/uL (130-400); RDW Coefficient of Variation 15.8 % (11.5-14.5); RDW Standard Deviation 46.8 fL (36.4-46.3); Red Blood Count 4.54 M/uL (4.20-5.40); White Blood Count 12.12 K/ul (4.8-10.8)
[2024-11-23 06:48] LABS: Albumin Level 3.5 gm/dl (3.4-5.0); BUN Creatinine Ratio 16.3 (10-20); Bilirubin,Total 0.3 mg/dl (0.2-1.0); Calcium 9.1 mg/dl (8.6-10.3); Creatinine Clr Calc Pharmacy 113.6 ml/min; Potassium 3.6 mmol/L (3.5-5.1); Total Protein 7.4 gm/dl (6.0-8.3)
[2024-11-23 07:07] LABS: Folate (Folic Acid),Ser orPlas 14.26 ng/ml (>5.38)
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
[2024-11-23] MEDS: CHOLECALCIFEROL 125 MCG (5,000 UNITS) TAB PO SCH (08:27)
[2024-11-23] MEDS: OPTIRAY 320 100ml IV ONE (09:55)
--- NOTE | 2024-11-23 10:40 | CT Scan Report ---
CT femur LT w con CLINICAL HISTORY: cellulitis, eval abscess/fluid collection COMPARISON STUDY: 11/14/2024 TECHNIQUE: Helical axial CT of the left femur and thigh were performed following 93 cc of intravenous Optiray 320. Sagittal and coronal reconstructions were done. Total exam DLP 2010.58mGy*cm FINDINGS: The cellulitis in the mid left thigh has diminished somewhat since the prior examination an teriorly and laterally.. However, there is a persistent focal infiltration of the subcutaneous fat in the medial aspect of the mid left thigh consistent with phlegmon. It has a similar appearance to the prior examination in overall size and extent. Near the inferior aspect of this phlegmonous collectio n there is a questionable developing, immature abscess with a thick wall measuring 2.9 cm in diameter . There appears to be some communication with the skin surface at this location. IMPRESSION: While the overall findings of cellulitis have improved in the anterior and lateral aspec t of the left thigh since the prior examination, the medial, focal, subcutaneous fatty infiltration l ikely due to phlegmonous area of fat necrosis is unchanged in overall extent. There may be an immatur e abscess developing near the inferior aspect of the phlegmonous cellulitis in the medial left thigh. ACT 112: Negative or not required by law. Electronically signed by: Araseli Poe M.D. 11/23/2024 10:39 AM
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
[2024-11-23] MEDS: cefTRIAXone SODIUM 2,000 MG/50 ML BAG IV SCH (12:59)
[2024-11-23] MEDS: LIDOCAINE 2% LOCAL 20 ML VIAL INFIL ONE (12:59)
[2024-11-23] MEDS: HYDROmorphone INJ 0.5 MG/0.5 ML SYR IV STA (13:32)
[2024-11-23] MEDS: SPIRONOLACTONE 25 MG TAB PO SCH (13:43)
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
--- NOTE | 2024-11-23 15:22 | Procedure Note ---
Procedure Note Date of Service November 23, 2024 The patient was consented for the procedure and all of her questions were answered. She has had multiple I&D procedures in the past and understood the implications. The area was cleaned using Betadine and the wound was anesthetized An incision was made over the area of slough with an 11 blade and there was a pocket of fluid encountered. Cultures were taken. An area of tunneling was identified medially where soft collections of exudate were identified. The skin over this area was further opened. The area was irrigated. 1/2" packing was inserted and the area was dressed with gauze and an ABD. [facility] Procedure Codes (Charges) Indication for Procedure Indication for procedure: Abscess and infected wound left thigh Coding Additional Codes Date of Service (PG.SURGERY)
[2024-11-23] MEDS: HYDROmorphone INJ 0.5 MG/0.5 ML SYR IV PRN (17:11)
[2024-11-24 06:36] LABS: Basophils # (auto) 0.02 K/uL (0.00-0.20); Basophils % (auto) 0.2 %; Eosinophils # (auto) 0.11 K/uL (0.00-0.50); Eosinophils % (auto) 1.1 %; Hematocrit (blood only) 39.8 % (37.0-47.0); Hemoglobin 12.6 g/dl (12.0-16.0); Immature Granulocytes # (auto) 0.14 K/uL (0.01-0.20); Immature Granulocytes % (auto) 1.4 %; Lymphocytes # (auto) 2.89 K/uL (1.20-3.40); Lymphocytes % (auto) 29.6 %; Mean Corpuscular Hemoglobin 26.2 pg (25.0-34.0); Mean Corpuscular Hgb Conc 31.7 g/dL (32.0-36.0); Mean Corpuscular Volume 82.7 fL (80.0-100.0); Mean Platelet Volume 9.6 fL (9.4-12.4); Monocytes # (auto) 0.45 K/uL (0.11-0.59); Monocytes % (auto) 4.6 %; Neutrophils # (auto) 6.16 K/uL (1.40-6.50); Neutrophils % (auto) 63.1 %; Platelet Count 443 K/uL (130-400); RDW Coefficient of Variation 15.9 % (11.5-14.5); Red Blood Count 4.81 M/uL (4.20-5.40); White Blood Count 9.77 K/ul (4.8-10.8)
[2024-11-24 07:47] LABS: Albumin Level 3.7 gm/dl (3.4-5.0); Bilirubin,Total 0.3 mg/dl (0.2-1.0); Calcium 9.2 mg/dl (8.6-10.3); Potassium 3.8 mmol/L (3.5-5.1)
[2024-11-24 07:53] LABS: Albumin Globulin Ratio 0.9 (0.9-2); BUN Creatinine Ratio 19.3 (10-20); Creatinine Clr Calc Pharmacy 125.9 ml/min; Globulin 4.1 gm/dl (2.5-4.0); Total Protein 7.8 gm/dl (6.0-8.3)
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
--- NOTE | 2024-11-24 08:53 | Surgery Progress Note ---
Date of Service November 24, 2024 Assessment & Plan (1) Abscess: Plan: POD 1 Bedside I+D Left thigh WBC wnl packing removed at bedside, wound probed, instructions for nursing to repack, cover with 4x4 and abd pad pt reports she can do wound care at home, has prior experience packing an abd wound Will need antibiotics on discharge per ID recommendations. General surgery will follow from peripheral stable for d/c from our standpoint f/u in office [address] De La Torre pt seen and examined with Dr De La Torre Admission and Anticipated Discharge Date Admission Date: November 14, 2024 Supervising Physician Co-Signing Physician Notes I have seen and examined this patient this am with the surgical team and I agree with this plan. Subjective pt reports pain improvement in L thigh post bedside I+D Review of Systems Constitutional: no fever and no chills Integumentary: + wounds Physical Exam Constitutional: cooperative and comfortable; no acute distress Respiratory: normal respiratory effort; no respiratory distress Cardiovascular: Rate/Rhythm: regular rate Skin: + wound Results & Data Vital Signs (Past 12 Hours) Vital Signs Temp Pulse Pulse Resp BP Pulse Ox Pulse Ox 11/24/24 07:33 97.9 F 72 16 129/76 95 11/24/24 05:28 71 91 11/24/24 03:30 72 92 11/23/24 22:59 75 93 11/23/24 21:43 84 94 O2 Del Method O2 Del Method 11/24/24 07:33 Room Air 11/24/24 05:28 Room Air 11/24/24 03:30 Nasal Cannula 11/23/24 22:59 Room Air 11/23/24 21:43 Room Air Results CBC w Diff Results: RBC 4.81 M/uL (4.20-5.40) 11/24/24 WBC 9.77 K/ul (4.8-10.8) 11/24/24 Hgb 12.6 g/dl (12.0-16.0) 11/24/24 Hct 39.8 % (37.0-47.0) 11/24/24 MCV 82.7 fL (80.0-100.0) 11/24/24 MCH 26.2 pg (25.0-34.0) 11/24/24 MCHC 31.7 g/dL (32.0-36.0) L 11/24/24 RDW Standard Deviation 48.0 fL (36.4-46.3) H 11/24/24 RDW Coefficient of Variation 15.9 % (11.5-14.5) H 11/24/24 Plt Count 443 K/uL (130-400) H 11/24/24 MPV 9.6 fL (9.4-12.4) 11/24/24 Nucleated Red Blood Cells % (auto) 0.2 % 11/23 Nucleated RBC Absolute Count (auto) 0.02 K/uL (0.00-0.12) 0 11/23/24 Neutrophils (%) (Auto) 63.1 % 11/24/24 Lymphocytes (%) (Auto) 29.6 % 11/24/24 Monocytes # (Auto) 0.45 K/uL (0.11-0.59) 11/24/24 Eosinophils # (Auto) 0.11 K/uL (0.00-0.50) 11/24/24 Immature Granulocyte % (Auto) 1.4 % 11/24/24 Neutrophils # (Auto) 6.16 K/uL (1.40-6.50) 11/24/24 Lymphocytes # (Auto) 2.89 K/uL (1.20-3.40) 11/24/24 Monocytes # (Auto) 0.45 K/uL (0.11-0.59) 11/24/24 Eosinophils # (Auto) 0.11 K/uL (0.00-0.50) 11/24/24 Basophils # (Auto) 0.02 K/uL (0.00-0.20) 11/24/24 Immature Granulocyte # (Auto) 0.14 K/uL (0.01-0.20) 5 Giant Platelets 1+ 10/10/19 Polychromasia 1+ 11/15/24 Hypochromasia Present 12/08/19 Echinocytes 1+ 10/08/19 Microcytosis Present 12/08/19 Ovalocytes 1+ 12/08/19 Dohle Bodies 1+ 11/15/24 PG Care Time/CCT Total # of Minutes Spent Total Time Spent with Patient: Total time spent is greater than 50% in coordination of care (as documented) at patient's floor/unit and/or counseling patient: Coding Level of Care Code 77584 SUB INP/OBS CARE 09/17MIN Diagnoses Abscess L02.91
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
[2024-11-24 12:47] LABS: Quantiferon Mitogen-NIL 3.23 IU/mL; Quantiferon NIL 0.02 IU/mL; Quantiferon TB Gold Plus NEGATIVE (NEGATIVE)
[2024-11-24] MEDS: ENOXAPARIN INJ 40 MG/0.4 ML SYR SQ SCH (17:04)
[2024-11-25] MEDS: LEVOTHYROXINE SODIUM 50 MCG TABLET PO SCH (05:34)
[2024-11-25 06:25] LABS: Basophils # (auto) 0.04 K/uL (0.00-0.20); Basophils % (auto) 0.5 %; Eosinophils # (auto) 0.15 K/uL (0.00-0.50); Eosinophils % (auto) 1.7 %; Hematocrit (blood only) 36.7 % (37.0-47.0); Hemoglobin 11.3 g/dl (12.0-16.0); Immature Granulocytes # (auto) 0.08 K/uL (0.01-0.20); Immature Granulocytes % (auto) 0.9 %; Lymphocytes # (auto) 2.77 K/uL (1.20-3.40); Lymphocytes % (auto) 31.3 %; Mean Corpuscular Hemoglobin 25.5 pg (25.0-34.0); Mean Corpuscular Hgb Conc 30.8 g/dL (32.0-36.0); Mean Corpuscular Volume 82.8 fL (80.0-100.0); Mean Platelet Volume 9.5 fL (9.4-12.4); Monocytes # (auto) 0.48 K/uL (0.11-0.59); Monocytes % (auto) 5.4 %; Neutrophils # (auto) 5.32 K/uL (1.40-6.50); Neutrophils % (auto) 60.2 %; Platelet Count 381 K/uL (130-400); RDW Coefficient of Variation 15.9 % (11.5-14.5); RDW Standard Deviation 47.8 fL (36.4-46.3); Red Blood Count 4.43 M/uL (4.20-5.40); White Blood Count 8.84 K/ul (4.8-10.8)
[2024-11-25 06:50] LABS: Calcium 8.8 mg/dl (8.6-10.3); Creatinine Clr Calc Pharmacy 111.5 ml/min
[2024-11-25 07:05] LABS: Thyroid Stimulating Hormone 2.622 uIu/ml (0.300-4.500)
[2024-11-25 07:16] VITALS: PULSE 74; RESP 16
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
--- NOTE | 2024-11-25 09:27 | Discharge Summary ---
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 You will need ongoing follow up with wound center and continued dressing changes daily to remove old packing and repack with 1/2 plain gauze, cover with 4x4, abd pad and medipore tape in the meantime. You should also have follow up with infectious disease as well as dermatology at discharge and recommend reaching back out to Dr hall from [place] for treatment of your Hidradenitis. As discussed, I think you are better off with SPIRONOLACTONE for hormonal control with HS and have stopped your bumex and metolazone but can monitor your weights and if significant weight gain can resume the bumex but would recommend talking with primary care prior to this occurring. I would HIGHLY recommend discussing resuming HUMIRA given negative quantiferon gold. As discussed with your diarrhea/constipation at times, sometimes this can be related to underlying autoimmune/inflammatory bowel process and should have screening colonoscopy in follow up given age >40 for screening as well. Your vitamin d level was LOW and have started/continued on replacement to help with wound healing as well. Had placed on pepcid for reflux with improvement and would recommend continuing daily for the next two weeks and can continue as needed following. We did check overnight oxygen test and did have some drops but no significant long durations but is possible underlying sleep apnea and can talk with primary care about consideration for outpatient sleep study. Please follow up with primary care, wound care, infectious disease in follow up to monitor your progress and coordinate your care. Please return to the ER with any increased redness, drainage, fever/chills, uncontrolled or worsened pain, or for any other symptoms concerning for you. It has been a pleasure being a part of the medical team providing for you while you have been in the hospital. Take care! You may follow up at the wound care center Change dressing daily to left thigh please remove old packing, repack with Supervising Physician Co-Signing Physician Notes The patient was not seen by me. The chart was reviewed. Case discussed with JULIUS Robles. Agree with assessment and plan Total Time Total Time Spent Total Time Spent (In Minutes): 120 Coding Level of Care Code 04467 INP/OBS DISCH >30 MIN Diagnoses Cellulitis of left thigh L03.116 Hematoma of left lower extremity S80.12XA Oral thrush B37.0 Yeast infection of the vagina B37.31
[2024-11-25 15:59] VITALS: BP 111/61; TEMP 97.9; O2SAT 95
== END 2024-11-25 19:00 | disposition home or self-care (01) | DRG 603 ==
LOC: ED 17:12 → SUATTDRO 21:36 → EDINP 21:36 → 3E 22:58